=== PATIENT | male | born 1945 | race Caucasian/White ===

== ENCOUNTER 2016-10-31 08:08 | Emergency (ER) | payer MEDICARE, OTHER ==
[~2016-10-31] VITALS: Ht 175.2 cm; Wt 79.4 kg
[~2016-10-31 08:08] MED LIST: CEFADROXIL500 M1 PO; DICYCLOMINE HCL10 MG PO; DIOVAN HCT PO; HYDROCODONE BIT1 T11 PO; IMDUR SA60 M1 PO; LOTRIMIN AF1% TP; MIRALAX POWDER17 G1 PO; PLAVIX75 M1 PO; PREDNISONE50 MG PO; PRILOSEC20 M1 PO; VICODIN 5/500 505 MG PO
[2016-10-31 08:47] LABS: BASO # 0.1 10*3/uL (0.0-0.1); BASO % 0.9 % (0.0-1.0); EOS # 0.2 10*3/uL (0.0-0.4); EOS % 1.9 % (1.0-4.0); HEMATOCRIT 43.9 % (42.0-52.0); HEMOGLOBIN 15.2 g/dl (14.0-18.0); IG # 0.1 10*3/uL (0.0-0.1); LYMPH # 1.3 10*3/uL (1.3-4.4); LYMPH % 11.1 % (27.0-41.0); MEAN CELL VOLUME 88.3 fl (80.0-94.0); MEAN CORPUSCULAR HGB 30.6 pg (27.0-31.0); MEAN CORPUSCULAR HGB CONC 34.6 g/dl (33.0-37.0); MEAN PLATELET VOLUME 10.2 fl (9.6-12.3); MONO # 0.9 10*3/uL (0.1-1.0); MONO % 7.6 % (3.0-9.0); NEUT % 77.8 % (47.0-73.0); PLATELET COUNT AUTOMATED 168 10*3/uL (130-400); RED BLOOD COUNT 4.97 10*6/uL (4.50-5.90); RED CELL DISTRI WIDTH 14.2 % (0-14.5); WHITE BLOOD COUNT 11.6 10*3/uL (4.8-10.8)
[2016-10-31 08:58] LABS: BUN 15 mg/dl (7-24); CARBON DIOXIDE 30 mmol/L (21-32); CHLORIDE 106 mmol/L (98-107); EST GLOM FILT AFRICAN AMERICAN > 60 ml/min; GLUCOSE 121 mg/dL (65-99); POTASSIUM 3.4 mmol/L (3.5-5.1); SODIUM 145 mmol/L (136-145)
[2016-10-31 10:11] VITALS: BP 130/79
[2016-10-31] MEDS ORDERED: ROBAXIN500 M1 PO (10:39)
[2016-10-31] MEDS ORDERED: PERCOCET 325 MG1 TA2 PO (10:39)
== END 2016-10-31 11:28 | disposition home or self-care (01) ==
LOC: ED 08:08
PROVIDERS: Emergency Medicine
DX: M54.2 Cervicalgia (principal); E87.6 Hypokalemia; E83.42 Hypomagnesemia; I25.10 Atherosclerotic heart disease of native coronary artery without angina pectoris; K21.9 Gastro-esophageal reflux disease without esophagitis; E78.5 Hyperlipidemia, unspecified; I12.9 Hypertensive chronic kidney disease with stage 1 through stage 4 chronic kidney disease, or unspecified chronic kidney disease; N18.9 Chronic kidney disease, unspecified; Z88.2 Allergy status to sulfonamides; Z88.8 Allergy status to other drugs, medicaments and biological substances; Z79.899 Other long term (current) drug therapy

== ENCOUNTER 2016-11-02 08:54 | Emergency (ER) | payer MEDICARE, OTHER ==
[~2016-11-02] VITALS: Ht 175.2 cm; Wt 79.4 kg
[~2016-11-02 08:54] MED LIST changes: +PERCOCET 325 MG1 TA2 PO; +ROBAXIN500 M1 PO
[2016-11-02] MEDS ORDERED: ACETAMINOPHEN-O1 TAB JT (09:00)
[2016-11-02 09:01] VITALS: BP 135/96
[2016-11-02] MEDS ORDERED: MEDROL DOSEPAK4 MG PO (09:29)
== END 2016-11-02 11:25 | disposition home or self-care (01) ==
LOC: ED 08:54
DX: M54.2 Cervicalgia (principal); M43.6 Torticollis; I25.10 Atherosclerotic heart disease of native coronary artery without angina pectoris; K21.9 Gastro-esophageal reflux disease without esophagitis; E78.5 Hyperlipidemia, unspecified; I12.9 Hypertensive chronic kidney disease with stage 1 through stage 4 chronic kidney disease, or unspecified chronic kidney disease; N18.9 Chronic kidney disease, unspecified; Z88.2 Allergy status to sulfonamides; Z88.8 Allergy status to other drugs, medicaments and biological substances; Z79.899 Other long term (current) drug therapy

== ENCOUNTER 2016-12-15 09:03 | Inpatient (IN) | payer MEDICARE, OTHER ==
[~2016-12-15] VITALS: Ht 175.2 cm; Wt 83.0 kg
[2016-12-15] VITALS (8 sets, daily range): BP systolic 115–164; BP diastolic 59–138
--- NOTE | ~2016-12-15 | CON ---
[place], [place] REPORT OF CONSULTATION NAME: SANJAY JEWELL JR [facility] #: [id number] UNIT #: [id number] ROOM: 411 DOCTOR: REBEKAH MENDOZAKAMAR BIRTHDATE: [birth year] DOS: REQUESTING PHYSICIAN: Dr. Marbin Mitchell. REASON FOR CONSULTATION: Chest pain. ASSESSMENT: 1. Current presentation with dizziness, lightheadedness after being in a hot bath tub. 2. Slight chest pain, heaviness, tightness. 3. Coronary artery disease with previous history of bypass surgery x 6 in 1996. 4. The patient had subsequent reported 4 stents, last one was done in July 2016. 5. Peripheral vascular disease with documented AAA stent. 6. Hypertension. 7. Hyperlipidemia. 8. Long history of tobacco abuse. 9. Early family history of heart disease. PLAN: 1. Cycle cardiac enzymes. 2. The patient requesting any further workup to be done with Dr. Anderson in [place]. 3. Okay to discharge home if 2 separate cardiac enzymes are negative within 6 hours. 4. Call for any change in symptoms. 5. 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 HISTORY AND PHYSICAL: The patient is a pleasant 71-year-old gentleman unknown to our practice, was referred by Dr. Mitchell for further evaluation of an episode of dizziness, lightheadedness that occurred after the patient being in the hot bath tub. The patient attempted to get up, got slightly dizzy, sat down and waited a while and then he got up and subsequently after that have some chest pain, heaviness, tightness, nonradiating and 3/10 with no associated nausea, vomiting or diaphoresis. This lasted for 10-15 minutes. The patient subsequently presented to the Emergency Room. Prior to this presentation, the patient had been doing relatively well since his last stent, which was in July of this year. Apparently, the patient received 2 stents. He is active, does not follow regular exercise program. The patient does have history of symptomatic palpitation, but none recently. No dizziness, lightheadedness, no syncope. He sleeps on one pillow with no reported PND, orthopnea, or pedal edema. 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 No fever, no chills, no night sweats, maintained good appetite, no weight loss. PAST MEDICAL HISTORY: As detailed in my assessment. SOCIAL HISTORY: The patient quit smoking about 25 years ago. No current alcohol or illicit drug abuse. [place], [place] REPORT OF CONSULTATION [id number] UN[facility] #: [id number] ROOM: 411 DOCTOR: KAMAR WELCH MD BIRTHDATE: [birth year] FAMILY HISTORY: The patient's mother had myocardial infarction, of possibly massive heart attack at age 58. His brother also had mild congestive heart failure in his 50s. CURRENT MEDICATIONS: He is on Lovenox, Protonix, Restoril, Zofran, morphine, Dulcolax, Tylenol. ALLERGIES: The patient is allergic to SULFA and STATIN. REVIEW OF SYSTEMS: Currently, the patient denies any headache, diplopia or blurry vision. No fever, no chills, no night sweats. No abdominal pain, no bright blood per rectum, no tarry stools. The patient admits to joint pain, no muscular pain. No anxiety, no depression. No polyuria, no polydipsia, no skin rash. Review of all other systems has been negative. PHYSICAL EXAMINATION: GENERAL: The patient is alert, oriented x 3, quite pleasant. VITAL SIGNS: Blood pressure 141/84, heart rate 77, respiratory rate of 14, temperature 97.4. HEENT: Extraocular muscles intact. Pupils equal, round, reactive to light. Conjunctivae: No pallor. Throat: No petechiae. NECK: Good carotid upstroke. Faint bruit could be heard over the right carotid. No lymphadenopathy or thyromegaly. HEART: S1, S2 with faint holosystolic murmur at left sternal border. No rub, no sternal heave. CHEST AND BACK: No deformities. LUNGS: Decreased air movement, but no shaneka wheezing or rales. ABDOMEN: Soft, nontender. Present bowel sounds. Unable to appreciate any masses or bruits. LOWER EXTREMITIES: There is no edema with faint distal pulses. NEUROLOGIC: Grossly nonfocal. SKIN: No significant rashes. Electrocardiogram showed normal sinus rhythm with mild nonspecific ST changes. LABORATORY DATA: White count 8.7, hemoglobin 16.8, potassium 3.6 and GFR over 60%. Normal liver function tests. CK-MB 2.8, CK is 151, troponin less than 0.015. [place], [place] REPORT OF CONSULTATION NAME: SANJAY JEWELL JR [facility]: [id number] UNIT #: [id number] ROOM: 411 DOCTOR: KAMAR WELCH MD BIRTHDATE: [birth year] KAMAR WELCH MD CM:CONSTR:REPORT OF CONSULTATION 1413 12/15/16 1933 interface
[~2016-12-15 09:03] MED LIST changes: +ACETAMINOPHEN-O1 TAB JT; +MEDROL DOSEPAK4 MG PO
[2016-12-15 09:27] LABS: BASO # 0.1 10*3/uL (0.0-0.1); BASO % 1.1 % (0.0-1.0); EOS # 0.2 10*3/uL (0.0-0.4); EOS % 2.4 % (1.0-4.0); HEMATOCRIT 48.9 % (42.0-52.0); HEMOGLOBIN 16.8 g/dl (14.0-18.0); LYMPH # 1.8 10*3/uL (1.3-4.4); LYMPH % 20.7 % (27.0-41.0); MEAN CELL VOLUME 89.4 fl (80.0-94.0); MEAN CORPUSCULAR HGB 30.7 pg (27.0-31.0); MEAN CORPUSCULAR HGB CONC 34.4 g/dl (33.0-37.0); MEAN PLATELET VOLUME 10.1 fl (9.6-12.3); MONO # 0.7 10*3/uL (0.1-1.0); MONO % 7.9 % (3.0-9.0); NEUT # 5.9 10*3/uL (2.3-7.9); NEUT % 67.4 % (47.0-73.0); PLATELET COUNT AUTOMATED 203 10*3/uL (130-400); RED BLOOD COUNT 5.47 10*6/uL (4.50-5.90); RED CELL DISTRI WIDTH 13.8 % (0-14.5); WHITE BLOOD COUNT 8.7 10*3/uL (4.8-10.8)
[2016-12-15 09:35] LABS: PROTHROMBIN TIME 10.8 SECONDS (9.0-12.4)
[2016-12-15 09:42] LABS: ALBUMIN 3.8 gm/dl (3.1-4.5); BILIRUBIN, TOTAL 0.5 mg/dl (0.2-1.0); BUN 20 mg/dl (7-24); CARBON DIOXIDE 26 mmol/L (21-32); CHLORIDE 106 mmol/L (98-107); EST GLOM FILT AFRICAN AMERICAN > 60 ml/min; GLUCOSE 109 mg/dL (65-99); MAGNESIUM 1.6 mg/dL (1.5-2.1); POTASSIUM 3.6 mmol/L (3.5-5.1); SGOT/AST 22 IU/L (3-35); SGPT/ALT 20 U/L (12-78); SODIUM 140 mmol/L (136-145); TOTAL PROTEIN 7.9 gm/dL (6.4-8.2)
[2016-12-15 09:43] LABS: ALKALINE PHOSPHATASE 83 U/L (45-117); CKMB 2.8 ng/ml (0.5-3.6); CPK 151 U/L (39-308)
[2016-12-15 09:54] LABS: C-REACTIVE PROTEIN < 0.29 MG/DL (0-0.3); TROPONIN I < 0.015 ng/ml (<0.045)
[2016-12-16] VITALS: BP 134/73
[2016-12-16 04:47] LABS: BASO # 0.1 10*3/uL (0.0-0.1); BASO % 0.9 % (0.0-1.0); EOS # 0.2 10*3/uL (0.0-0.4); EOS % 2.8 % (1.0-4.0); HEMATOCRIT 43.5 % (42.0-52.0); LYMPH # 1.7 10*3/uL (1.3-4.4); LYMPH % 20.1 % (27.0-41.0); MEAN CELL VOLUME 89.9 fl (80.0-94.0); MEAN CORPUSCULAR HGB CONC 34.5 g/dl (33.0-37.0); MEAN PLATELET VOLUME 10.5 fl (9.6-12.3); MONO # 0.7 10*3/uL (0.1-1.0); MONO % 7.7 % (3.0-9.0); NEUT # 5.8 10*3/uL (2.3-7.9); PLATELET COUNT AUTOMATED 181 10*3/uL (130-400); RED BLOOD COUNT 4.84 10*6/uL (4.50-5.90); RED CELL DISTRI WIDTH 13.9 % (0-14.5); WHITE BLOOD COUNT 8.6 10*3/uL (4.8-10.8)
[2016-12-16 05:15] LABS: ALBUMIN 3.1 gm/dl (3.1-4.5); BUN 19 mg/dl (7-24); CARBON DIOXIDE 27 mmol/L (21-32); CHLORIDE 106 mmol/L (98-107); GLUCOSE 98 mg/dL (65-99); MAGNESIUM 1.7 mg/dL (1.5-2.1); POTASSIUM 3.7 mmol/L (3.5-5.1); SODIUM 141 mmol/L (136-145)
[2016-12-16 05:26] LABS: ALKALINE PHOSPHATASE 69 U/L (45-117); BILIRUBIN, TOTAL 0.4 mg/dl (0.2-1.0); CHOLESTEROL 180 mg/dL (<200); EST GLOM FILT AFRICAN AMERICAN > 60 ml/min; FREE T4 1.14 ng/dl (0.76-1.46); HDL CHOLESTEROL 30 mg/dl (40-60); LDL CHOLESTEROL 95 mg/dL (9-159); PHOSPHOROUS 2.4 mg/dL (2.5-4.9); SGOT/AST 14 IU/L (3-35); SGPT/ALT 17 U/L (12-78); TOTAL PROTEIN 6.8 gm/dL (6.4-8.2); TRIGLYCERIDES 275 mg/dl (<150); VLDL CHOLESTEROL 55 mg/dL (6-40)
[2016-12-16 07:54] LABS: VITAMIN D, 25-HYDROXY 24.8 ng/mL (30-100)
[2016-12-16 07:55] LABS: FOLIC ACID 8.76 ng/mL (>5.38)
[2016-12-16 08:00] VITALS: BP 134/84
[2016-12-16] MEDS ORDERED: D-1000 185 MG-11 TAB PO (09:29)
== END 2016-12-16 09:48 | disposition home or self-care (01) | DRG 206 ==
LOC: ED 09:03 → 4E 10:36 → EDHOLD 10:36 → 4E 10:48
PROVIDERS: Emergency Medicine; Registered Nurse
DX: M94.0 Chondrocostal junction syndrome [Tietze] (principal); J44.9 Chronic obstructive pulmonary disease, unspecified; K21.9 Gastro-esophageal reflux disease without esophagitis; R55 Syncope and collapse; I73.9 Peripheral vascular disease, unspecified; I25.10 Atherosclerotic heart disease of native coronary artery without angina pectoris; E78.5 Hyperlipidemia, unspecified; N18.9 Chronic kidney disease, unspecified; Z96.653 Presence of artificial knee joint, bilateral; I12.9 Hypertensive chronic kidney disease with stage 1 through stage 4 chronic kidney disease, or unspecified chronic kidney disease; Z95.1 Presence of aortocoronary bypass graft; Z90.49 Acquired absence of other specified parts of digestive tract; I25.2 Old myocardial infarction; Z83.3 Family history of diabetes mellitus; Z82.49 Family history of ischemic heart disease and other diseases of the circulatory system; Z88.2 Allergy status to sulfonamides; Z95.5 Presence of coronary angioplasty implant and graft; Z95.828 Presence of other vascular implants and grafts; Z88.8 Allergy status to other drugs, medicaments and biological substances; Z79.84 Long term (current) use of oral hypoglycemic drugs; Z79.1 Long term (current) use of non-steroidal anti-inflammatories (NSAID); Z79.899 Other long term (current) drug therapy; Z87.891 Personal history of nicotine dependence

== ENCOUNTER 2017-03-26 07:11 | Inpatient (IN) | payer MEDICARE, OTHER ==
[~2017-03-26] VITALS: Ht 180 cm; Wt 73.0 kg
[2017-03-26 07:11] VITALS: BP 149/82
[~2017-03-26 07:11] MED LIST changes: +D-1000 185 MG-11 TAB PO
[2017-03-26 07:29] LABS: BASO # 0.1 10*3/uL (0.0-0.1); BASO % 0.9 % (0.0-1.0); EOS # 0.2 10*3/uL (0.0-0.4); EOS % 2.4 % (1.0-4.0); HEMOGLOBIN 17.1 g/dl (14.0-18.0); LYMPH # 1.8 10*3/uL (1.3-4.4); LYMPH % 18.6 % (27.0-41.0); MEAN CELL VOLUME 88.2 fl (80.0-94.0); MEAN CORPUSCULAR HGB 30.2 pg (27.0-31.0); MEAN CORPUSCULAR HGB CONC 34.2 g/dl (33.0-37.0); MONO # 0.7 10*3/uL (0.1-1.0); MONO % 7.3 % (3.0-9.0); NEUT # 6.7 10*3/uL (2.3-7.9); NEUT % 70.2 % (47.0-73.0); PLATELET COUNT AUTOMATED 219 10*3/uL (130-400); RED BLOOD COUNT 5.67 10*6/uL (4.50-5.90); RED CELL DISTRI WIDTH 13.3 % (0-14.5); WHITE BLOOD COUNT 9.5 10*3/uL (4.8-10.8)
[2017-03-26 07:38] LABS: ACT PARTIAL THROMBO TIME 26.4 SECONDS (20.8-31.5); INTERNATIONAL NORM RATIO 1.1 (2.0-3.5)
[2017-03-26 07:46] LABS: ALBUMIN 3.8 gm/dl (3.1-4.5); ALKALINE PHOSPHATASE 86 U/L (45-117); BUN 18 mg/dl (7-24); CHLORIDE 104 mmol/L (98-107); CREATININE 1.32 mg/dL (0.70-1.30); POTASSIUM 3.8 mmol/L (3.5-5.1); SGOT/AST 18 IU/L (3-35); SGPT/ALT 23 U/L (12-78); SODIUM 139 mmol/L (136-145)
[2017-03-26 07:55] LABS: TROPONIN I < 0.015 ng/ml (<0.045)
[2017-03-26 08:07] VITALS: BP 123/74
[2017-03-26 08:25] VITALS: BP 108/65
[2017-03-26] MEDS ORDERED: OMEPRAZOLE D/R20 MG PO (09:52)
[2017-03-26 12:00] VITALS: BP 139/71
--- NOTE | 2017-03-26 14:03 | NUR ---
PT IS ON ROOM AIR. BP OF 155/90 SAO2-96 HR PT WAS WALKED FOR 7 MINUTES. WALKED 2 LAPS PT DID NOT DROP BELOW 95%
[2017-03-26 16:00] VITALS: BP 153/83
[2017-03-26 20:00] VITALS: BP 150/80
--- NOTE | 2017-03-26 21:30 | NUR ---
PATIENT RESTING QUIETLY IN BED. HE IS PLEASANT AND COOPERATIVE WITH CARE. DENIES ANY CP AT THIS TIME AND STATES HE IS ALWAYS A LITTLE SOB BUT THAT IS NORMAL FOR HIM. RESPIRATIONS EASY/REG ON RA. NO SXS OF DISTRESS. WILL MONITOR. SEE ASSESSMENT.
[2017-03-27] VITALS: BP 155/88
[2017-03-27 07:14] LABS: HEMATOCRIT 48.9 % (42.0-52.0); MEAN CELL VOLUME 88.9 fl (80.0-94.0); MEAN CORPUSCULAR HGB 30.9 pg (27.0-31.0); MEAN CORPUSCULAR HGB CONC 34.8 g/dl (33.0-37.0); MEAN PLATELET VOLUME 10.4 fl (9.6-12.3); PLATELET COUNT AUTOMATED 241 10*3/uL (130-400); RED CELL DISTRI WIDTH 13.5 % (0-14.5); WHITE BLOOD COUNT 25.3 10*3/uL (4.8-10.8)
[2017-03-27 07:46] LABS: ALBUMIN 3.5 gm/dl (3.1-4.5); BUN 27 mg/dl (7-24); CHLORIDE 107 mmol/L (98-107); PLATELET SUFFICIENCY NORMAL (NORMAL); POTASSIUM 3.4 mmol/L (3.5-5.1); SGOT/AST 13 IU/L (3-35); SGPT/ALT 21 U/L (12-78); SODIUM 141 mmol/L (136-145); TOTAL CELLS COUNTED 100 #CELLS
[2017-03-27 07:51] LABS: ALKALINE PHOSPHATASE 83 U/L (45-117); CHOLESTEROL 214 mg/dL (<200); CREATININE 1.23 mg/dL (0.70-1.30); HDL CHOLESTEROL 44 mg/dl (40-60); LDL CHOLESTEROL 134 mg/dL (9-159); PHOSPHOROUS 2.8 mg/dL (2.5-4.9); TOTAL PROTEIN 7.5 gm/dL (6.4-8.2); TRIGLYCERIDES 182 mg/dl (<150); VLDL CHOLESTEROL 36 mg/dL (6-40)
[2017-03-27 08:00] VITALS: BP 154/83
[2017-03-27] MEDS ORDERED: MUCINEX1200 M1 PO (09:56)
--- NOTE | 2017-03-27 11:03 | NUR ---
DISCHARGE INSTRUCTIONS REVIEWED. 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 PT PICKED UP BY HIS AND AMBULATED OFF THE FLOOR.
== END 2017-03-27 11:03 | disposition home or self-care (01) | DRG 206 ==
LOC: ED 07:11 → EDHOLD 08:06 → 4E 08:23 → ICCU 08:30 → 4E 08:33
PROVIDERS: Emergency Medicine; Registered Nurse; ADMIT Internal Medicine
DX: M94.0 Chondrocostal junction syndrome [Tietze] (principal); J44.1 Chronic obstructive pulmonary disease with (acute) exacerbation; K21.9 Gastro-esophageal reflux disease without esophagitis; E78.5 Hyperlipidemia, unspecified; I25.10 Atherosclerotic heart disease of native coronary artery without angina pectoris; N18.9 Chronic kidney disease, unspecified; I12.9 Hypertensive chronic kidney disease with stage 1 through stage 4 chronic kidney disease, or unspecified chronic kidney disease; Z96.652 Presence of left artificial knee joint; K58.9 Irritable bowel syndrome, unspecified; K57.90 Diverticulosis of intestine, part unspecified, without perforation or abscess without bleeding; Z95.1 Presence of aortocoronary bypass graft; Z95.5 Presence of coronary angioplasty implant and graft; I25.2 Old myocardial infarction; Z90.49 Acquired absence of other specified parts of digestive tract; Z88.2 Allergy status to sulfonamides; Z82.49 Family history of ischemic heart disease and other diseases of the circulatory system; Z88.8 Allergy status to other drugs, medicaments and biological substances; Z98.49 Cataract extraction status, unspecified eye

== ENCOUNTER 2017-07-04 09:29 | Emergency (ER) | payer MEDICARE, OTHER ==
[~2017-07-04] VITALS: Ht 175.2 cm; Wt 83.0 kg
[~2017-07-04 09:29] MED LIST changes: +MUCINEX1200 M1 PO; +OMEPRAZOLE D/R20 MG PO
[2017-07-04] MEDS ORDERED: SYMB160 INH (09:35)
[2017-07-04] MEDS ORDERED: ALBUTEROL2.5 MG/0.5 INH (09:35)
[2017-07-04 09:36] VITALS: BP 123/73
[2017-07-04 09:54] LABS: BASO # 0.1 10*3/uL (0.0-0.1); EOS # 0.2 10*3/uL (0.0-0.4); EOS % 1.8 % (1.0-4.0); HEMOGLOBIN 16.1 g/dl (14.0-18.0); LYMPH # 1.4 10*3/uL (1.3-4.4); LYMPH % 14.9 % (27.0-41.0); MEAN CELL VOLUME 90.6 fl (80.0-94.0); MEAN CORPUSCULAR HGB 30.4 pg (27.0-31.0); MEAN CORPUSCULAR HGB CONC 33.5 g/dl (33.0-37.0); MEAN PLATELET VOLUME 10.2 fl (9.6-12.3); MONO # 0.7 10*3/uL (0.1-1.0); MONO % 7.8 % (3.0-9.0); NEUT # 6.7 10*3/uL (2.3-7.9); NEUT % 73.8 % (47.0-73.0); PLATELET COUNT AUTOMATED 187 10*3/uL (130-400); RED CELL DISTRI WIDTH 14.3 % (0-14.5); WHITE BLOOD COUNT 9.1 10*3/uL (4.8-10.8)
[2017-07-04 10:03] LABS: ACT PARTIAL THROMBO TIME 24.9 SECONDS (20.8-31.5)
[2017-07-04 10:11] LABS: ALBUMIN 3.8 gm/dl (3.1-4.5); ALKALINE PHOSPHATASE 73 U/L (45-117); BUN 20 mg/dl (7-24); CHLORIDE 105 mmol/L (98-107); CREATININE 1.27 mg/dL (0.70-1.30); POTASSIUM 3.7 mmol/L (3.5-5.1); SGOT/AST 15 IU/L (3-35); SGPT/ALT 24 U/L (12-78); SODIUM 140 mmol/L (136-145); TOTAL PROTEIN 7.4 gm/dL (6.4-8.2)
[2017-07-04 10:14] LABS: TROPONIN I < 0.015 ng/ml (<0.045)
[2017-07-04] MEDS ORDERED: PREDNISONE10 MG PO (10:50)
[2017-07-04] MEDS ORDERED: DUONEB 3 MG/3 ML3 M1 INH (10:50)
== END 2017-07-04 11:04 | disposition home or self-care (01) ==
LOC: ED 09:29
PROVIDERS: Registered Nurse
DX: J44.9 Chronic obstructive pulmonary disease, unspecified (principal); I25.10 Atherosclerotic heart disease of native coronary artery without angina pectoris; G47.30 Sleep apnea, unspecified; I25.2 Old myocardial infarction; Z95.1 Presence of aortocoronary bypass graft; Z90.49 Acquired absence of other specified parts of digestive tract; Z90.89 Acquired absence of other organs; Z79.899 Other long term (current) drug therapy; Z88.2 Allergy status to sulfonamides; Z88.8 Allergy status to other drugs, medicaments and biological substances

== ENCOUNTER 2017-08-11 10:28 | Emergency (ER) | payer MEDICARE, OTHER ==
[~2017-08-11] VITALS: Ht 175.2 cm; Wt 81.6 kg
[~2017-08-11 10:28] MED LIST changes: +ALBUTEROL2.5 MG/0.5 INH; +DUONEB 3 MG/3 ML3 M1 INH; +PREDNISONE10 MG PO; +SYMB160 INH
[2017-08-11 10:50] LABS: BASO # 0.1 10*3/uL (0.0-0.1); BASO % 0.6 % (0.0-1.0); EOS % 0.2 % (1.0-4.0); HEMATOCRIT 47.1 % (42.0-52.0); HEMOGLOBIN 16.4 g/dl (14.0-18.0); LYMPH # 0.8 10*3/uL (1.3-4.4); LYMPH % 8.9 % (27.0-41.0); MEAN CORPUSCULAR HGB CONC 34.8 g/dl (33.0-37.0); MEAN PLATELET VOLUME 9.6 fl (9.6-12.3); MONO # 0.4 10*3/uL (0.1-1.0); MONO % 4.3 % (3.0-9.0); NEUT # 7.8 10*3/uL (2.3-7.9); NEUT % 84.9 % (47.0-73.0); PLATELET COUNT AUTOMATED 221 10*3/uL (130-400); RED BLOOD COUNT 5.29 10*6/uL (4.50-5.90); RED CELL DISTRI WIDTH 14.1 % (0-14.5); WHITE BLOOD COUNT 9.2 10*3/uL (4.8-10.8)
[2017-08-11 10:59] LABS: ACT PARTIAL THROMBO TIME 25.1 SECONDS (20.8-31.5)
[2017-08-11 11:06] LABS: ALBUMIN 3.9 gm/dl (3.1-4.5); ALKALINE PHOSPHATASE 78 U/L (45-117); BUN 18 mg/dl (7-24); CHLORIDE 106 mmol/L (98-107); CREATININE 1.35 mg/dL (0.70-1.30); POTASSIUM 3.3 mmol/L (3.5-5.1); SGOT/AST 16 IU/L (3-35); SGPT/ALT 22 U/L (12-78); SODIUM 140 mmol/L (136-145); TOTAL PROTEIN 7.8 gm/dL (6.4-8.2)
[2017-08-11 11:07] LABS: TROPONIN I < 0.015 ng/ml (<0.045)
[2017-08-11 13:17] VITALS: BP 116/70
== END 2017-08-11 13:19 | disposition home or self-care (01) ==
LOC: ED 10:28
PROVIDERS: Emergency Medicine
DX: R42 Dizziness and giddiness (principal); I10 Essential (primary) hypertension; I25.10 Atherosclerotic heart disease of native coronary artery without angina pectoris; J44.9 Chronic obstructive pulmonary disease, unspecified; Z98.890 Other specified postprocedural states; Z90.49 Acquired absence of other specified parts of digestive tract; Z96.653 Presence of artificial knee joint, bilateral; Z95.1 Presence of aortocoronary bypass graft; Z88.2 Allergy status to sulfonamides; Z88.3 Allergy status to other anti-infective agents; Z79.899 Other long term (current) drug therapy

== ENCOUNTER 2017-08-24 07:12 | Emergency (ER) | payer MEDICARE, OTHER ==
[~2017-08-24] VITALS: Ht 175.2 cm; Wt 83.9 kg
[2017-08-24 07:58] LABS: BASO # 0.1 10*3/uL (0.0-0.1); BASO % 0.9 % (0.0-1.0); EOS # 0.2 10*3/uL (0.0-0.4); EOS % 1.3 % (1.0-4.0); HEMATOCRIT 45.6 % (42.0-52.0); LYMPH # 1.4 10*3/uL (1.3-4.4); LYMPH % 10.3 % (27.0-41.0); MEAN CELL VOLUME 87.9 fl (80.0-94.0); MEAN CORPUSCULAR HGB 30.8 pg (27.0-31.0); MEAN CORPUSCULAR HGB CONC 35.1 g/dl (33.0-37.0); MEAN PLATELET VOLUME 10.2 fl (9.6-12.3); MONO # 1.1 10*3/uL (0.1-1.0); MONO % 8.6 % (3.0-9.0); NEUT # 10.4 10*3/uL (2.3-7.9); NEUT % 78.1 % (47.0-73.0); PLATELET COUNT AUTOMATED 184 10*3/uL (130-400); RED BLOOD COUNT 5.19 10*6/uL (4.50-5.90); RED CELL DISTRI WIDTH 14.1 % (0-14.5); WHITE BLOOD COUNT 13.3 10*3/uL (4.8-10.8)
[2017-08-24 08:24] LABS: ALBUMIN 3.5 gm/dl (3.1-4.5); ALKALINE PHOSPHATASE 68 U/L (45-117); BUN 17 mg/dl (7-24); CHLORIDE 105 mmol/L (98-107); CREATININE 1.19 mg/dL (0.70-1.30); POTASSIUM 3.2 mmol/L (3.5-5.1); SGOT/AST 12 IU/L (3-35); SGPT/ALT 19 U/L (12-78); SODIUM 141 mmol/L (136-145)
[2017-08-24 08:29] LABS: TROPONIN I < 0.015 ng/ml (<0.045)
[2017-08-24 12:00] VITALS: BP 130/80
== END 2017-08-24 12:18 | disposition short-term general hospital (02) ==
LOC: ED 07:12
PROVIDERS: Family Medicine
DX: I13.0 Hypertensive heart and chronic kidney disease with heart failure and stage 1 through stage 4 chronic kidney disease, or unspecified chronic kidney disease (principal); N18.9 Chronic kidney disease, unspecified; I50.9 Heart failure, unspecified; I25.10 Atherosclerotic heart disease of native coronary artery without angina pectoris; J44.9 Chronic obstructive pulmonary disease, unspecified; K21.9 Gastro-esophageal reflux disease without esophagitis; E78.5 Hyperlipidemia, unspecified; K58.9 Irritable bowel syndrome, unspecified; Z95.1 Presence of aortocoronary bypass graft; Z90.49 Acquired absence of other specified parts of digestive tract; Z98.890 Other specified postprocedural states; Z96.653 Presence of artificial knee joint, bilateral; Z88.2 Allergy status to sulfonamides; Z88.3 Allergy status to other anti-infective agents; Z79.899 Other long term (current) drug therapy; Z95.5 Presence of coronary angioplasty implant and graft

== ENCOUNTER 2018-04-16 09:09 | Inpatient (IN) | payer MEDICARE, OTHER ==
[2018-04-16] VITALS (12 sets, daily range): BP systolic 113–157; BP diastolic 74–94
[~2018-04-16] VITALS: Ht 175.3 cm; Wt 88.1 kg
--- NOTE | ~2018-04-16 | PR ---
[place], [place] PROGRESS NOTE NAME: SANJAY JEWELL JR [facility] #: [id number] UNIT #: [id number] ROOM: [facility] DOCTOR: DONAVAN CORDON MD,NANCY BIRTHDATE: [birth year] DOS: 04/18/2018 PULMONARY PROGRESS NOTE SUBJECTIVE: Chest tube remains clamped on the left side. He has not reported any symptoms of shortness of breath, coughing, or sputum expectoration. He denies symptoms of nausea or vomiting. Chest pain which has been noted at the site of the chest tube remains unchanged, but controlled with pain medication. REVIEW OF SYSTEMS: There were no symptoms of nausea, vomiting, diarrhea, abdominal pain, hematemesis, melena or hematochezia headache or diplopia. Remaining review of systems of the patient was completed, that was noted all negative. Family, social, and past surgical history remains all unchanged for this patient since my consultation of yesterday. OBJECTIVE: VITAL SIGNS: For the patient, which have been recorded shows a normal temperature, respiratory rate 22, heart rate of 100-97, blood pressure 134/84-141/90. The pulse oxygen saturation on 2 liters nasal cannula 98% saturation this morning at rest. HEENT: Examination shows head was atraumatic. Eyes nonicterus. NECK: Supple. CARDIOVASCULAR: S1, S2 is audible. LUNGS: The patient was noted without any wheezing or crackles at the present time. Subcutaneous emphysema was noted palpable mild in the left anterior lateral chest wall. There were no subcutaneous emphysema palpable in the neck. CARDIOVASCULAR: S1, S2 audible. ABDOMEN: Noted flat, soft, nontender. Bowel sounds present. EXTREMITIES: Without acute edema. MUSCULOSKELETAL: Without any acute deformities. SKIN: Visible skin no lesions or rashes. CENTRAL NERVOUS SYSTEM: Cranial nerves 2-12 intact. LABORATORY DATA: BMP that was done this morning, BUN 24, creatinine was normal, glucose 110. Remaining electrolytes normal. CBC this morning remains normal. IMAGING STUDIES: CT scan of the chest that was completed this morning was reviewed personally shows a 5.5 x 4 cm polyp in the anterior aspect of the left upper lobe was noted. Chest tube was noted in place with the clip in the close proximity of the left subclavian artery. Emphysema changes noted as panlobular emphysema in the upper lung consistent with past diagnosis of chronic obstructive pulmonary disease of tobacco use. There was no visible pneumothorax. Subcutaneous emphysema noted in the left chest wall and in the area of the skin under the left shoulder. IMPRESSION: 1. The patient who has been currently noted with air leak resulting from acute bolus ruptured in the left upper lung. [place], [place] PROGRESS NOTE NAME: SANJAY JEWELL JR UNIT #: [id number] ROOM: [facility] DOCTOR: DONAVAN CORDON MD,NANCY BIRTHDATE: [birth year] 2. Panlobular emphysema. 3. Subcutaneous emphysema which resulted from the pneumothorax. There was no pneumothorax noted. The chest tube remains clamped for the last 24 hours. 4. The patient with a history of coronary artery disease and other medical illnesses. PLAN OF THERAPY: The chest tube of the patient was removed because of the tip was noted close in proximity of the left subclavian artery for this patient to prevent any trauma with the cough or other etiology and movement. The dressing was applied at the bedside. The patient needs to be transferred to another facility to have the surgical resection of the ____ to prevent the pneumothorax, which was very likely for the patient in the near future if it is not managed. Subcutaneous emphysema to be managed. Assessment and management were discussed with the patient and recommendation for the patient and his spouse in detail at the bedside. 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 Arrangements will be made by the primary care team for this patient to be transferred with assistance. In the meantime, all other plan of therapy for the patient to be continued without changes. Usual care, other supportive plan of treatment care. NANCY GO MD CM:PNTRANS [id number] NANCY CORDON MD 04/18/18 1257 interface
--- NOTE | ~2018-04-16 | EKG ---
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
--- NOTE | ~2018-04-16 | EKG ---
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
--- NOTE | ~2018-04-16 | CON ---
[place], [place] REPORT OF CONSULTATION NAME: SANJAY JEWELL JR [facility] #: [id number] UNIT #: [id number] ROOM: [facility] DOCTOR: NANCY LEGGETT MD BIRTHDATE: [birth year] DOS: 04/17/2018 PULMONARY CONSULTATION, EVALUATION AND MANAGEMENT CONSULTATION REQUESTED BY: Hospitalist service. REASON FOR CONSULTATION: For assessment of current spontaneous pneumothorax. HISTORY OF PRESENT ILLNESS: This is a patient who does not have any known medical condition for the patient. A 72-year-old patient, presented to the Emergency Room on 04/16/2018. The patient reported symptoms of having left-sided chest pressure with the bloating in the abdomen. The patient felt like air trapped as a bubble in the abdomen and unable to burb. The symptom was noted increased requiring assessment in the Emergency Room. The patient has been assessed in the Emergency Room with the chest x-ray done as well, which shows a large pneumothorax in the left side with complete atelectasis of the right lung. The patient has pneumothorax, chest tube for the patient inserted by the ER physician. The insertion of the chest tube resulted in resolution of the pneumothorax completely. The patient was admitted to the Intensive Care Unit. The patient was in the Intensive Care Unit and chest tube accidentally pulled out and it was not known by the patient. The patient has a chest tube reinserted later and the repeat chest x-ray does show recurrence of the pneumothorax. The patient had similar tube inserted as well. The patient denies any symptoms of fever or chills. Denies any symptoms of coughing, sputum expectoration or hemoptysis. The patient is currently resting comfortable at this time. The chest tube remains in place which has been planned for the patient about 90 minutes or greater. REVIEW OF SYSTEMS: CONSTITUTIONAL: Fatigue and tiredness noted. There were no symptoms of fever or chills. EYES: Denies any burning, redness, or tenderness. EARS, NOSE, THROAT SYMPTOMS: Denies sore throat, hoarseness, otalgia, postnasal drainage or epistaxis. CARDIOVASCULAR: No anginal pain, edema, or pain of the lower extremities. The chest pain patient reported related to the current chest tube in place that is controlled with pain medications. GASTROINTESTINAL: Denies dysphagia, nausea, vomiting, diarrhea, abdominal pain, hematemesis, melena, or hematochezia. GENITOURINARY: No dysuria, suprapubic pain, or hematuria. MUSCULOSKELETAL: No acute joint pain, redness or tenderness or any deformities. GENITOURINARY: Denies dizziness, headache, diplopia, or syncopal episodes. SKIN: Denies lesions, rashes or any open areas. CENTRAL NERVOUS SYSTEM: Medications were reviewed. They were noted all negative. PAST MEDICAL HISTORY: 1. Coronary artery disease. 2. Chronic kidney disease. 3. General anxiety disorder. [place], [place] REPORT OF CONSULTATION NAME: SANJAY JEWELL JR UNIT #: [id number] ROOM: [facility] DOCTOR: DONAVAN CORDON MD,NANCY BIRTHDATE: [birth year] 4. Diverticulosis. 5. Gastroesophageal reflux. 6. History of chronic obstructive pulmonary disease. 7. Abdominal aortic aneurysm that was repaired. 8. Hyperlipidemia. 9. Essential hypertension. 10. Irritable bowel syndrome. PAST SURGICAL HISTORY: 1. Bilateral ____ implantation. 2. Hernia repair. 3. Cholecystectomy. 4. Coronary artery bypass grafting, 6-vessel bypass. 5. Cholecystectomy. SOCIAL HISTORY: The patient is and lives at home. Denies any history of alcohol use or illicit drug use. 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 Tobacco use for the patient noted as a pack of cigarettes a day for about 30-40 years. Tobacco cessation was done 30 years ago. FAMILY HISTORY: The patient's father patient at the age of 86 years with complications of coronary artery disease. The mother at the age of 50 with complication of abdominal aortic aneurysm and myocardial infarction. PAST SURGICAL HISTORY: History of mitral valve replacement. HOME MEDICATIONS: Listed as use of Symbicort HFA, aspirin, dicyclomine, lorazepam, omeprazole, and Diovan. ALLERGIES: 1. STATIN DRUGS. 2. SULFA DRUGS. 3. AMIODARONE. 4. ELIQUIS. 5. DOXYCYCLINE. PHYSICAL EXAMINATION: GENERAL: This is a 72-year-old male patient who has been currently resting comfortably, sitting on the bed without any acute distress this morning of assessment. Height of 5 feet 9 inches, weight of 104 pounds. BMI 20.7. VITAL SIGNS: The patient otherwise noted as normal temperature since admission, respiratory rate 17-22, and heart rate of 119, on admission noted at 88; blood pressure 134/94-144/90. Pulse oxygen saturation recorded on 2 liters nasal cannula 95% saturation. It was noted 87% on admission on room air. HEENT: Examination shows head was atraumatic. Eyes nonicterus. NECK: Supple. There were no subcutaneous emphysema. Trachea midline. CARDIOVASCULAR SYSTEM: S1, S2 audible. LUNGS: The patient has nlbl-nr-emawhert decreased breath sounds on the left chest. The right lung was noted clear. There was no wheezing heard. ABDOMEN: Soft and nontender. Bowel sounds present. [place], [place] REPORT OF CONSULTATION NAME: SANJAY JEWELL JR UNIT #: [id number] ROOM: [facility] DOCTOR: DONAVAN CORDON MD,NANCY BIRTHDATE: [birth year] EXTREMITIES: Without acute edema. MUSCULOSKELETAL: The patient noted without any acute deformities. CENTRAL NERVOUS SYSTEM: Cranial nerves 2-12 intact. MUSCULOSKELETAL: Noted without any deformities. LABORATORY DATA: CBC that was done on admission yesterday noted as normal CBC. Lactic acid 1.8 yesterday. PT/PTT noted normal yesterday. CMP of the patient that was done yesterday noted BUN 24, creatinine 1.54, and glucose 128. The CMP remaining was normal. The troponin noted normal yesterday. CBC of the patient that was done on 04/17/2018, WBC count 11.2; normal CBC. BMP that was done on 04/17/2018, BUN 24, creatinine 1.35. Glucose 138. Remaining electrolytes grossly normal. RADIOLOGIC DATA: Review of the radiology data, chest x-ray on admission complete pneumothorax on the left side, coronary bypass grafting changes, reexpansion of the lung with insertion of small chest tube remains in place in the left upper hemithorax. Chest x-ray of the patient as the chest tube was accidentally pulled out resulting in pneumothorax, reexpansion of the lung was noted. The followup chest x-ray of patient shows the lung reexpanded again. Chest x-ray that was done this morning at the chest tube was clamped for approximately ____ lungs do appear to be reexpanded without any visible gross pneumothorax with the limited chest x-ray. IMPRESSION: 1. Spontaneous pneumothorax with history of chronic obstructive pulmonary disease with possibility of subpleural bleb resulting in recurrent pneumothorax. There was no evidence of acute exacerbation. 2. Acute hypoxic respiratory failure secondary to the current acute nontraumatic pneumothorax. 3. The patient with history of coronary artery disease. 4. Essential hypertension. 5. Acute kidney injury with chronic kidney disease mostly secondary to intravascular volume depletion of the patient prerenal resolving from yesterday admission. 6. History of mitral valve replacement previously as well. PLAN OF MANAGEMENT: The chest tube will remain clamped for the next [address] scan of the chest will be done tomorrow morning to assess the lung parenchyma. If the patient does develop respiratory distress, worsening with hypoxia or any chest discomfort, chest tube clamp will be removed and will be placed back to the suction -20 cm of water. Pain management of the patient to be continued as already ordered by the primary care physician. Oxygen supplementation, maintain pulse ox 92% or greater. Other additional treatment changes will be ordered made for this patient based on progression of his illness accordingly. Other usual care, plan of therapy and care plan and management. Thanks for allowing me to participate in the care of this patient. [place], [place] REPORT OF CONSULTATION NAME: FANTA JRSANJAY Maximo UNIT #: [id number] ROOM: [facility] DOCTOR: NANCY LEGGETT MD BIRTHDATE: [birth year] NANCY GO MD CM:CONSTR:REPORT OF CONSULTATION 1304 04/17/18 3790 interface
--- NOTE | ~2018-04-16 | EKG ---
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
[2018-04-16] MEDS ORDERED: LORAZEPAM0.5 MG PO (09:23)
[2018-04-16] MEDS ORDERED: ASPIRIN ADULT L81 M1 PO (09:24)
[2018-04-16 09:29] LABS: BASO # 0.1 10*3/uL (0.0-0.1); BASO % 1.2 % (0.0-1.0); EOS # 0.2 10*3/uL (0.0-0.4); EOS % 2.4 % (1.0-4.0); HEMATOCRIT 50.3 % (42.0-52.0); HEMOGLOBIN 16.5 g/dl (14.0-18.0); LYMPH # 1.8 10*3/uL (1.3-4.4); MEAN CELL VOLUME 88.6 fl (80.0-94.0); MEAN CORPUSCULAR HGB CONC 32.8 g/dl (33.0-37.0); MEAN PLATELET VOLUME 10.2 fl (9.6-12.3); MONO # 0.8 10*3/uL (0.1-1.0); MONO % 7.7 % (3.0-9.0); NEUT % 70.1 % (47.0-73.0); PLATELET COUNT AUTOMATED 205 10*3/uL (130-400); RED BLOOD COUNT 5.68 10*6/uL (4.50-5.90); RED CELL DISTRI WIDTH 15.1 % (0-14.5)
[2018-04-16 09:39] LABS: ACT PARTIAL THROMBO TIME 26.2 SECONDS (20.8-31.5)
[2018-04-16 09:46] LABS: ALBUMIN 3.8 gm/dl (3.1-4.5); ALKALINE PHOSPHATASE 118 U/L (45-117); BUN 24 mg/dl (7-24); CHLORIDE 104 mmol/L (98-107); CREATININE 1.54 mg/dL (0.70-1.30); LIPASE 243 U/L (73-393); POTASSIUM 3.7 mmol/L (3.5-5.1); SGOT/AST 21 IU/L (3-35); SGPT/ALT 23 U/L (12-78); SODIUM 139 mmol/L (136-145)
[2018-04-16 09:47] LABS: TROPONIN I < 0.015 ng/ml (<0.045)
[2018-04-17 04:00] VITALS: BP 122/68
[2018-04-17 06:35] LABS: BASO # 0.1 10*3/uL (0.0-0.1); BASO % 0.6 % (0.0-1.0); EOS # 0.2 10*3/uL (0.0-0.4); EOS % 1.7 % (1.0-4.0); HEMATOCRIT 46.1 % (42.0-52.0); HEMOGLOBIN 15.3 g/dl (14.0-18.0); LYMPH # 1.3 10*3/uL (1.3-4.4); MEAN CELL VOLUME 88.3 fl (80.0-94.0); MEAN CORPUSCULAR HGB 29.3 pg (27.0-31.0); MEAN CORPUSCULAR HGB CONC 33.2 g/dl (33.0-37.0); MEAN PLATELET VOLUME 10.8 fl (9.6-12.3); MONO % 8.6 % (3.0-9.0); NEUT # 8.6 10*3/uL (2.3-7.9); NEUT % 76.5 % (47.0-73.0); PLATELET COUNT AUTOMATED 180 10*3/uL (130-400); RED BLOOD COUNT 5.22 10*6/uL (4.50-5.90); RED CELL DISTRI WIDTH 15.2 % (0-14.5); WHITE BLOOD COUNT 11.2 10*3/uL (4.8-10.8)
[2018-04-17 07:15] LABS: BUN 24 mg/dl (7-24); CHLORIDE 108 mmol/L (98-107); CREATININE 1.35 mg/dL (0.70-1.30); POTASSIUM 3.9 mmol/L (3.5-5.1); SODIUM 142 mmol/L (136-145)
[2018-04-17 07:19] LABS: CHOLESTEROL 159 mg/dL (<200); FREE T4 1.16 ng/dl (0.76-1.46); HDL CHOLESTEROL 31 mg/dl (40-60); LDL CHOLESTEROL 84 mg/dL (9-159); PHOSPHOROUS 2.9 mg/dL (2.5-4.9); TRIGLYCERIDES 222 mg/dl (<150); VLDL CHOLESTEROL 44 mg/dL (6-40)
[2018-04-17 08:00] VITALS: BP 134/94
[2018-04-17 09:34] LABS: VITAMIN D, 25-HYDROXY 15.5 ng/mL (30-100)
[2018-04-17 12:00] VITALS: BP 144/84
[2018-04-17 16:00] VITALS: BP 122/68
[2018-04-17 20:00] VITALS: BP 143/84
[2018-04-18] VITALS: BP 137/89
[2018-04-18 04:00] VITALS: BP 134/84
[2018-04-18 05:30] LABS: BUN 24 mg/dl (7-24); CHLORIDE 106 mmol/L (98-107); CREATININE 1.23 mg/dL (0.70-1.30); POTASSIUM 3.9 mmol/L (3.5-5.1); SODIUM 141 mmol/L (136-145)
[2018-04-18 06:13] LABS: BASO # 0.1 10*3/uL (0.0-0.1); BASO % 0.5 % (0.0-1.0); EOS # 0.1 10*3/uL (0.0-0.4); EOS % 1.5 % (1.0-4.0); HEMATOCRIT 47.4 % (42.0-52.0); HEMOGLOBIN 15.5 g/dl (14.0-18.0); LYMPH # 1.5 10*3/uL (1.3-4.4); MEAN CELL VOLUME 88.6 fl (80.0-94.0); MEAN CORPUSCULAR HGB CONC 32.7 g/dl (33.0-37.0); MEAN PLATELET VOLUME 10.6 fl (9.6-12.3); MONO # 0.7 10*3/uL (0.1-1.0); MONO % 7.7 % (3.0-9.0); NEUT # 7.1 10*3/uL (2.3-7.9); NEUT % 73.8 % (47.0-73.0); PLATELET COUNT AUTOMATED 173 10*3/uL (130-400); RED BLOOD COUNT 5.35 10*6/uL (4.50-5.90); RED CELL DISTRI WIDTH 15.2 % (0-14.5); WHITE BLOOD COUNT 9.6 10*3/uL (4.8-10.8)
[2018-04-18 08:00] VITALS: BP 136/70; BP 141/90
[2018-04-18 12:00] VITALS: BP 150/60
== END 2018-04-18 13:09 | disposition short-term general hospital (02) | DRG 199 ==
LOC: ED 09:09 → ICCU 10:39 → EDHOLD 10:39 → ICCU 10:49
PROVIDERS: Emergency Medicine; Internal Medicine
PROC: 0W9B30Z Drainage of Left Pleural Cavity with Drainage Device, Percutaneous Approach (ICD-10-PCS; principal; 2018-04-16)
DX: J93.83 Other pneumothorax (principal); J96.01 Acute respiratory failure with hypoxia; R65.10 Systemic inflammatory response syndrome (SIRS) of non-infectious origin without acute organ dysfunction; T79.7XXA Traumatic subcutaneous emphysema, initial encounter; T85.628A Displacement of other specified internal prosthetic devices, implants and grafts, initial encounter; N17.9 Acute kidney failure, unspecified; Z79.82 Long term (current) use of aspirin; I25.10 Atherosclerotic heart disease of native coronary artery without angina pectoris; K58.9 Irritable bowel syndrome, unspecified; F41.9 Anxiety disorder, unspecified; N18.9 Chronic kidney disease, unspecified; I12.9 Hypertensive chronic kidney disease with stage 1 through stage 4 chronic kidney disease, or unspecified chronic kidney disease; R07.89 Other chest pain; I48.91 Unspecified atrial fibrillation; R73.9 Hyperglycemia, unspecified; E66.3 Overweight; K57.90 Diverticulosis of intestine, part unspecified, without perforation or abscess without bleeding; E78.5 Hyperlipidemia, unspecified; K21.9 Gastro-esophageal reflux disease without esophagitis; Z96.653 Presence of artificial knee joint, bilateral; X58.XXXA Exposure to other specified factors, initial encounter; Y83.8 Other surgical procedures as the cause of abnormal reaction of the patient, or of later complication, without mention of misadventure at the time of the procedure; Y92.238 Other place in hospital as the place of occurrence of the external cause; Z95.1 Presence of aortocoronary bypass graft; Z79.01 Long term (current) use of anticoagulants; Z88.2 Allergy status to sulfonamides; Z88.1 Allergy status to other antibiotic agents; Z79.899 Other long term (current) drug therapy; Z90.49 Acquired absence of other specified parts of digestive tract; I25.2 Old myocardial infarction; Z82.49 Family history of ischemic heart disease and other diseases of the circulatory system; Z68.28 Body mass index [BMI] 28.0-28.9, adult

== ENCOUNTER 2018-05-07 21:29 | Emergency (ER) | payer MEDICARE, OTHER ==
[~2018-05-07] VITALS: Ht 175.2 cm; Wt 86.2 kg
--- NOTE | ~2018-05-07 | EKG ---
[place], [place] ELECTROCARDIOGRAM REPORT NAME: SANJAY JEWELL JR UNIT #: [id number] ROOM: DOCTOR: FROILAN DRAFT REPORT BIRTHDATE: [birth year] [facility] Test Date: 2018-05-07 Test Time: 21:27:40 Pat Name: SANJAY JEWELL Department: Room: Gender: M Line Locator: : 1945 Requested By: FIDENCIO BELCHER Order Number: [id number] Reading MD: Measurements Intervals [place] Rate: 118 P: -85 NC: 139 QRS: 77 QRSD: 104 T: 39 QT: 324 QTc: 455 Interpretive Statements Sinus or ectopic atrial tachycardia Multiple ventricular premature complexes Minimal ST depression, inferior leads Compared to ECG 04/16/2018 14:59:54 Ventricular premature complex(es) now present ST (T wave) deviation now present CM:EKGRPT:ELECTROCARDIOGRAM REPORT 26 55 FIDENCIO DIAZ DRAFT REPORT FIDENCIO BELCHER DO
--- NOTE | ~2018-05-07 | EKG ---
[place], [place] ELECTROCARDIOGRAM REPORT NAME: SANJAY JEWELL JR UNIT #: [id number] ROOM: DOCTOR: FROILAN DRAFT REPORT BIRTHDATE: [birth year] [facility] Test Date: 2018-05-08 Test Time: 00:40:08 Pat Name: SANJAY JEWELL Department: Room: Gender: M Teaching Dietitian: : 1945 Requested By: FIDENCIO BELCHER Order Number: [id number] Reading MD: Measurements Intervals [place] Rate: 100 P: -68 DC: 182 QRS: -6 QRSD: 92 T: 8 QT: 355 QTc: 458 Interpretive Statements Sinus or ectopic atrial tachycardia Multiple premature complexes, vent \T\ supraven Abnormal R-wave progression, late transition Compared to ECG 04/16/2018 14:59:54 No significant changes CM:EKGRPT:ELECTROCARDIOGRAM REPORT 0040 2144 FIDENCIO DIAZ DRAFT REPORT FIDENCIO BELCHER DO
[~2018-05-07 21:29] MED LIST changes: +ASPIRIN ADULT L81 M1 PO; +LORAZEPAM0.5 MG PO
[2018-05-07 22:05] LABS: BASO # 0.1 10*3/uL (0.0-0.1); BASO % 0.9 % (0.0-1.0); EOS # 0.5 10*3/uL (0.0-0.4); EOS % 4.4 % (1.0-4.0); HEMATOCRIT 47.7 % (42.0-52.0); HEMOGLOBIN 15.9 g/dl (14.0-18.0); LYMPH # 1.9 10*3/uL (1.3-4.4); LYMPH % 17.6 % (27.0-41.0); MEAN CORPUSCULAR HGB 29.7 pg (27.0-31.0); MEAN CORPUSCULAR HGB CONC 33.3 g/dl (33.0-37.0); MEAN PLATELET VOLUME 10.5 fl (9.6-12.3); MONO # 0.8 10*3/uL (0.1-1.0); MONO % 7.4 % (3.0-9.0); NEUT # 7.3 10*3/uL (2.3-7.9); NEUT % 69.1 % (47.0-73.0); PLATELET COUNT AUTOMATED 208 10*3/uL (130-400); RED BLOOD COUNT 5.36 10*6/uL (4.50-5.90); RED CELL DISTRI WIDTH 14.7 % (0-14.5); WHITE BLOOD COUNT 10.6 10*3/uL (4.8-10.8)
[2018-05-07 22:20] LABS: ACT PARTIAL THROMBO TIME 26.7 SECONDS (20.8-31.5)
[2018-05-07 22:22] LABS: ALBUMIN 3.6 gm/dl (3.1-4.5); ALKALINE PHOSPHATASE 104 U/L (45-117); BUN 26 mg/dl (7-24); CHLORIDE 110 mmol/L (98-107); CREATININE 1.54 mg/dL (0.70-1.30); POTASSIUM 3.5 mmol/L (3.5-5.1); SGOT/AST 23 IU/L (3-35); SGPT/ALT 26 U/L (12-78); SODIUM 144 mmol/L (136-145); TOTAL PROTEIN 7.5 gm/dL (6.4-8.2)
[2018-05-07 22:27] LABS: TROPONIN I < 0.015 ng/ml (<0.045)
[2018-05-08 00:55] VITALS: BP 133/82
== END 2018-05-08 02:28 | disposition short-term general hospital (02) ==
LOC: ED 21:29
PROVIDERS: Emergency Medicine
DX: J93.9 Pneumothorax, unspecified (principal); I25.10 Atherosclerotic heart disease of native coronary artery without angina pectoris; J44.9 Chronic obstructive pulmonary disease, unspecified; K21.9 Gastro-esophageal reflux disease without esophagitis; E78.5 Hyperlipidemia, unspecified; I12.9 Hypertensive chronic kidney disease with stage 1 through stage 4 chronic kidney disease, or unspecified chronic kidney disease; N18.9 Chronic kidney disease, unspecified; Z88.1 Allergy status to other antibiotic agents; Z88.2 Allergy status to sulfonamides; Z88.8 Allergy status to other drugs, medicaments and biological substances; Z79.899 Other long term (current) drug therapy; Z79.82 Long term (current) use of aspirin; Z95.1 Presence of aortocoronary bypass graft; Z87.891 Personal history of nicotine dependence

== ENCOUNTER 2018-05-24 07:13 | Inpatient (IN) | payer MEDICARE, OTHER ==
[~2018-05-24] VITALS: Ht 175.2 cm; Wt 86.0 kg
--- NOTE | ~2018-05-24 | EKG ---
[place], [place] ELECTROCARDIOGRAM REPORT NAME: SANJAY JEWELL JR UNIT #: [id number] ROOM: 425 DOCTOR: FROILAN DRAFT REPORT BIRTHDATE: [birth year] [facility] Test Date: 2018-05-24 Test Time: 07:39:06 Pat Name: SANJAY JEWELL Department: Room: 005 Gender: M Director Business Development: : 1945 Requested By: ULICES MICHELE Order Number: [id number] Reading MD: Kenyatta Isabel MD Measurements Intervals [place] Rate: 86 P: -15 ND: 171 QRS: 12 QRSD: 99 T: 13 QT: 393 QTc: 470 Interpretive Statements Sinus rhythm Multiple premature complexes, vent \T\ supraven Probable left ventricular hypertrophy Baseline wander in lead(s) V2,V5 Compared to ECG 05/08/2018 00:40:08 Ectopic atrial rhythm no longer present Electronically Signed On 05-25-2018 9:28:12 PST by Kenyatta Isabel MD CM:EKGRPT:ELECTROCARDIOGRAM REPORT 0739 0928 ULICES DIAZ DRAFT REPORT ULICES MICHELE DO
--- NOTE | ~2018-05-24 | PR ---
[place], [place] PROGRESS NOTE NAME: SAN[facility]AY JEWELL JR [facility] #: [id number] UNIT #: [id number] ROOM: 425 DOCTOR: DONAVAN CORDON MD,NANCY BIRTHDATE: [birth year] DOS: 05/26/2018 SUBJECTIVE: The patient noted comfortable at this time without any acute distress. Shortness of breath and wheezing was noted decreased, but not completely resolved. Denies symptoms of chest pain, fever or chills. OBJECTIVE: VITAL SIGNS: For the patient, which have been recorded shows a normal temperature, respiratory rate of 20, heart rate 87, blood pressure 141/72. The pulse ox saturation for this patient 95% saturation on room air. HEENT: Examination shows head was atraumatic. Eyes nonicterus. NECK: Supple. CARDIOVASCULAR: S1, S2 audible. LUNGS: Without any crackles. Mild expiratory wheezing. Decreased breath sounds in the left lower lung. ABDOMEN: Soft, nontender. Bowel sounds present. EXTREMITIES: No acute edema. IMPRESSION: 1. The patient with acute exacerbation of chronic obstructive pulmonary disease, reduction of respiratory symptoms, still noted with mild bilateral expiratory wheezing. 2. Small pleural fluid was also noted on the left side as well, status post VATS procedure with left upper lobe resection and bullectomy. PLAN OF MANAGEMENT: The patient could be discharged home on tapering dose of prednisone. Other supportive therapy, plan of management, care plan for the patient. Monitor the pleural fluid, reassessment approval for thoracentesis could be done if the pleural fluid enlarges. NANCY GO MD CM:PNTRANS [id number] NANCY CORDON MD 05/26/18 1357 interface
--- NOTE | ~2018-05-24 | CON ---
[place], [place] REPORT OF CONSULTATION NAME: SANJAY JEWELL JR [facility] #: [id number] UNIT #: [id number] ROOM: 425 DOCTOR: DONAVAN CORDON MDNANCY BIRTHDATE: [birth year] DOS: 05/25/2018 PULMONARY CONSULTATION, EVALUATION AND MANAGEMENT REASON FOR CONSULTATION: Assess the patient's current pleural fluid, symptoms of shortness of breath with his post recent surgery. HISTORY OF PRESENT ILLNESS: This is a 72-year-old white male who has been known to [place] in 04/2018 hospitalized, noted with acute spontaneous pneumothorax on the left side of the chest. The patient was also noted with air leak at that time as well initially managed in this hospital, and later on transferred to [facility] for further care, no current air leak. The patient was assessed and managed in [facility]. He underwent VATS procedure. Bullectomy done of the left upper lobe successfully. The surgery was completed on 05/09/2018. The patient was discharged home on 05/13/2018. He was noted in usual state of health in the last 24 hours and developed increased symptoms of shortness breath with tightness in the chest. There were no symptoms of coughing reported. Denies symptoms of hemoptysis. The patient does have some symptoms of wheezing. REVIEW OF SYSTEMS: CONSTITUTIONAL SYMPTOMS: Fatigue and tiredness reported without any symptoms of fever or chills. EYES: Denies any burning, redness, or tenderness. EARS, NOSE, THROAT SYMPTOMS: Denies sore throat, hoarseness, otalgia, postnasal drainage. CARDIOVASCULAR: Denies angina, pain of the lower extremities, or palpitations. GASTROINTESTINAL SYMPTOMS: Denies dysphagia, nausea, vomiting, diarrhea, abdominal pain, hematemesis, or melena. GENITOURINARY SYMPTOMS: Denies dysuria, suprapubic pain, or urinary incontinence. MUSCULOSKELETAL SYMPTOMS: Denies joint pain or deformities. SKIN: No lesions or rashes reported. CENTRAL NERVOUS SYSTEM: Denies symptoms of dizziness, headache, diplopia, syncopal episode, or general weakness reported. Remaining systems were reviewed. They were noted all negative. PAST MEDICAL HISTORY: Known with: 1. 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 2. Coronary artery disease with bypass grafting in 2018. 3. Chronic kidney disease, stage 3. 4. General anxiety disorder. 5. Diverticulosis. 6. Chronic obstructive pulmonary disease. 7. Gastroesophageal reflux. 8. Abdominal aortic aneurysm. 9. Hyperlipidemia. 10. Essential hypertension. 11. Irritable bowel syndrome. [place], [place] REPORT OF CONSULTATION NAME: SANJAY JEWELL JR UNIT #: [id number] ROOM: 425 DOCTOR: NANCY LEGGETT MD BIRTHDATE: [birth year] PAST SURGICAL HISTORY: 1. Bilateral cataract extraction and lens implantation. 2. Hernia repair. 3. Cholecystectomy. 4. Coronary artery bypass grafting in 10/2017. 5. Cholecystectomy. 6. Chest tube insertion in 04/2018 on the left side. 7. Left VATS procedure with bullectomy of the left upper lobe on 05/09/2018 in [facility]. 8. Bilateral total knee replacement. 9. Cardiac catheterization. SOCIAL HISTORY: The patient is and lives at home. Denies history of alcohol use or illicit drug use. Tobacco use known since teenager, pack of cigarettes per day, discontinued about 30 years ago. No tobacco use was reported about 30 years or so. FAMILY HISTORY: The patient's father at age 8686 years old with complications of coronary artery disease. Mother at the age of 5050 years old with complication of abdominal aortic aneurysm and acute myocardial infarction. HOME MEDICATIONS: Listed use of aspirin, Symbicort, Bentyl, DuoNeb, lorazepam, metoprolol succinate, and omeprazole. DRUG ALLERGIES: REPORTED ALLERGIC TO THE STATIN DRUGS, THE PATIENT WITH MUSCLE PAIN. SULFA DRUGS CAUSING HIVES, AMIODARONE CAUSING DIZZINESS AND MIGRAINOUS HEADACHE. ELIQUIS WITH DIZZINESS AND MIGRAINE HEADACHE. DOXYCYCLINE CAUSING SKIN HIVES. PHYSICAL EXAMINATION: GENERAL: This is a 72-year-old male currently lying in the bed without any acute distress this morning of assessment. His height recorded by the nursing staff on current admission with height of 5 feet 9 inches, weight of 189 pounds, and BMI 28. VITAL SIGNS: Normal temperature, respiratory rate 18-20, heart rate of 113 on admission, currently noticed 74, blood pressure 140/76-145/51 this morning. The pulse oxygen saturation is 96% on 3-4 liters of oxygen supplementation. HEENT: Head was atraumatic. Eyes nonicterus. NECK: Supple. Head was atraumatic. CARDIOVASCULAR SYSTEM: S1, S2 audible without any added sounds. LUNGS: The patient with decreased breath sounds on the left chest. Healing wound of recent mini thoracotomy as well. Wheezing was noted in the lungs bilaterally, more on the right than the left side. ABDOMEN: Soft, nontender. Bowel sounds present. EXTREMITIES: Without any acute edema. MUSCULOSKELETAL: Without acute deformities. NEUROLOGIC: Cranial nerves 2-12 intact. VISIBLE SKIN: No lesions or rashes present. [place], [place] REPORT OF CONSULTATION NAME: SANJAY JEWELL JR UNIT #: [id number] ROOM: 425 DOCTOR: NANCY LEGGETT MD BIRTHDATE: [birth year] LABORATORY DATA: The chest x-ray that was done yesterday in the Emergency Room with small pleural fluid noted with changes of COPD, hyperinflation, and past coronary bypass grafting as well. The CT scan of the chest that was completed yesterday was reviewed shows small left pleural fluid without any evidence of acute pulmonary infiltration or other acute abnormalities. Postoperative changes were noted. Adenoma was suggested of the left adrenal gland as well. However, the mass lesions were reported in both adrenal glands. CBC yesterday on admission; WBC count 11.9, remaining CBC normal. The lactic acid 2.2, follow up 1.1 yesterday. PT/PTT were normal. CMP yesterday; normal BUN and creatinine. Remaining electrolytes were grossly normal. CBC this morning; WBC count 12.0, hemoglobin and hematocrit normal, platelet count noted as normal. CMP that was done this morning; BUN normal, creatinine was normal, glucose 101. Other electrolytes grossly normal. Albumin is 2.7. IMPRESSION: The patient who has been currently admitted to the hospital noted with: 1. Acute exacerbation of chronic obstructive pulmonary disease is most likely cause of current shortness of breath. 2. Small left-sided pleural effusion, post-thoracotomy with VATS procedure. It does not require any further intervention. The thoracentesis could be performed, but there is a high risk of complications with that, which would not be done. Pleural fluid will be monitored. 3. Status post recent surgery, VATS procedure, and left upper lobectomy with bullectomy. 4. Past history of coronary artery disease and coronary artery bypass grafting. 5. Over debility was noted as a result of current acute illnesses. PLAN OF MANAGEMENT: The patient was started on Solu-Medrol 40 mg b.i.d. Continue bronchodilators. Monitoring of the pleural fluid with a chest x-ray intermittently. Sputum for Gram stain and culture will be ordered if the patient is able to expectorate. There is no evidence of acute infection at the present time. The patient could be given oral antibiotic in case of infection isolated. Continue use of the oral antibiotics as well. Other additional treatment changes will be made based on progression of his illness. Thanks for allowing me to participate in the care of this patient. NANCY GO MD CM:CONSTR:REPORT OF CONSULTATION 1220 05/26/18 0129 interface
[2018-05-24 07:15] VITALS: BP 183/109
[2018-05-24] MEDS ORDERED: METOPROLOL SUCC25 M2 PO (07:21)
[2018-05-24 07:36] LABS: BASO # 0.2 10*3/uL (0.0-0.1); BASO % 1.3 % (0.0-1.0); EOS # 0.7 10*3/uL (0.0-0.4); EOS % 5.8 % (1.0-4.0); HEMATOCRIT 44.7 % (42.0-52.0); HEMOGLOBIN 14.4 g/dl (14.0-18.0); LYMPH # 1.6 10*3/uL (1.3-4.4); LYMPH % 13.4 % (27.0-41.0); MEAN CELL VOLUME 89.9 fl (80.0-94.0); MEAN CORPUSCULAR HGB CONC 32.2 g/dl (33.0-37.0); MEAN PLATELET VOLUME 9.5 fl (9.6-12.3); MONO % 8.5 % (3.0-9.0); NEUT # 8.4 10*3/uL (2.3-7.9); NEUT % 70.2 % (47.0-73.0); PLATELET COUNT AUTOMATED 273 10*3/uL (130-400); RED BLOOD COUNT 4.97 10*6/uL (4.50-5.90); RED CELL DISTRI WIDTH 14.5 % (0-14.5); WHITE BLOOD COUNT 11.9 10*3/uL (4.8-10.8)
[2018-05-24 07:45] LABS: ACT PARTIAL THROMBO TIME 26.2 SECONDS (20.8-31.5)
[2018-05-24 07:54] LABS: ALBUMIN 2.9 gm/dl (3.1-4.5); ALKALINE PHOSPHATASE 82 U/L (45-117); BUN 20 mg/dl (7-24); CHLORIDE 108 mmol/L (98-107); CREATININE 1.26 mg/dL (0.70-1.30); LIPASE 151 U/L (73-393); POTASSIUM 3.5 mmol/L (3.5-5.1); SGOT/AST 14 IU/L (3-35); SGPT/ALT 21 U/L (12-78); SODIUM 140 mmol/L (136-145); TOTAL PROTEIN 7.4 gm/dL (6.4-8.2)
[2018-05-24 07:57] LABS: TROPONIN I < 0.015 ng/ml (<0.045)
[2018-05-24 09:40] VITALS: BP 147/89
[2018-05-24 13:45] VITALS: BP 184/106
--- NOTE | 2018-05-24 13:45 | NUR ---
[employer] 72, admitted to , under the services of ANGELES Reyes DO with a diagnosis of . Chief complaint is SOB. Patient arrived via bed from ER. Monitor applied. Initial assessment completed. Vital signs taken and recorded. ANGELES REYES DO notified of admission to the unit. Orders received. See assessment for past medical history, medications and allergies. Patient and/or family oriented to unit. [facility] visitation policy reviewed. Clothing/patient valuable form completed. MANUELA BHAT
[2018-05-24] MEDS ORDERED: COMBIVENT RESPIM4 GM INH (13:49)
[2018-05-24] MEDS ORDERED: SYMB160 INH (13:49)
--- NOTE | 2018-05-24 14:31 | NUR ---
DR. DAMON NOTIFIED OF PT'S BP.
--- NOTE | 2018-05-24 14:37 | NUR ---
DR. REESE NOTIFIED OF CONSULT.
--- NOTE | 2018-05-24 14:40 | NUR ---
DR. GO NOTIFIED OF CONSULT.
[2018-05-24] MEDS ORDERED: ATIVAN0.5 MG PO (14:49)
[2018-05-24 16:00] VITALS: BP 152/72
--- NOTE | 2018-05-24 17:56 | NUR ---
NORCO GIVEN FOR C/O GENERALIZED DISCOMFORT. WILL MONITOR.
[2018-05-24 20:00] VITALS: BP 147/72
[2018-05-25] VITALS: BP 140/76
--- NOTE | 2018-05-25 06:00 | NUR ---
PATIENT IN BED TALKING ON CELL PHONE AT THIS TIME. NO SIGNS OR SYMPTOMS OF DISTRESS NOTED. DENIES COMPLAINTS OF PAIN OR DISCOMFORT. WILL CONTINUE TO MONITOR. CALL LIGHT IN REACH.
[2018-05-25 06:11] LABS: BASO # 0.2 10*3/uL (0.0-0.1); BASO % 1.5 % (0.0-1.0); EOS # 0.8 10*3/uL (0.0-0.4); EOS % 6.6 % (1.0-4.0); HEMATOCRIT 42.2 % (42.0-52.0); HEMOGLOBIN 13.5 g/dl (14.0-18.0); LYMPH # 1.3 10*3/uL (1.3-4.4); LYMPH % 10.9 % (27.0-41.0); MEAN CELL VOLUME 89.6 fl (80.0-94.0); MEAN CORPUSCULAR HGB 28.7 pg (27.0-31.0); MONO # 1.1 10*3/uL (0.1-1.0); MONO % 9.1 % (3.0-9.0); NEUT # 8.6 10*3/uL (2.3-7.9); NEUT % 71.2 % (47.0-73.0); PLATELET COUNT AUTOMATED 251 10*3/uL (130-400); RED BLOOD COUNT 4.71 10*6/uL (4.50-5.90); RED CELL DISTRI WIDTH 14.5 % (0-14.5)
[2018-05-25 06:16] LABS: ALBUMIN 2.7 gm/dl (3.1-4.5); BUN 17 mg/dl (7-24); CHLORIDE 108 mmol/L (98-107); CHOLESTEROL 156 mg/dL (<200); CREATININE 1.21 mg/dL (0.70-1.30); HDL CHOLESTEROL 34 mg/dl (40-60); LDL CHOLESTEROL 96 mg/dL (9-159); PHOSPHOROUS 3.1 mg/dL (2.5-4.9); POTASSIUM 3.8 mmol/L (3.5-5.1); SGOT/AST 11 IU/L (3-35); SGPT/ALT 19 U/L (12-78); SODIUM 140 mmol/L (136-145); TOTAL PROTEIN 6.6 gm/dL (6.4-8.2); TRIGLYCERIDES 128 mg/dl (<150); VLDL CHOLESTEROL 26 mg/dL (6-40)
[2018-05-25 06:22] LABS: ALKALINE PHOSPHATASE 61 U/L (45-117); FREE T4 1.43 ng/dl (0.76-1.46)
[2018-05-25 06:44] LABS: ACT PARTIAL THROMBO TIME 26.9 SECONDS (20.8-31.5); INTERNATIONAL NORM RATIO 1.1 (2.0-3.5)
[2018-05-25 07:45] LABS: VITAMIN D, 25-HYDROXY 16.2 ng/mL (30-100)
[2018-05-25 08:00] VITALS: BP 145/51
--- NOTE | 2018-05-25 08:48 | NUR ---
TYLENOL GIVEN FOR C/O HEADACHE. WILL MONITOR.
--- NOTE | 2018-05-25 09:00 | NUR ---
Paste Mixing Supervisor in to talk to patient. Patient states lives at home with . There are no steps in the home. Physician: deandre marin [facility]: [facility] Home health services: none Patient's level of ADLs: INDEPENDENT Patient has working utilities: all working DME: pradip Follow-up physician's appointment after d/c: will be made by hospitalist nurse director upon discharge Does patient want to access PORTAL?: no Discharge plan discussed with patient, patient lives at home with , is independent in adls and ambulation, patient will be going home when able and denies any home needs. JOEL REECE
--- NOTE | 2018-05-25 09:50 | NUR ---
TYLENOL EFFECTIVE PER PT.
[2018-05-25 12:00] VITALS: BP 146/91
[2018-05-25 16:00] VITALS: BP 124/58
[2018-05-25 20:00] VITALS: BP 125/62
--- NOTE | 2018-05-25 22:12 | NUR ---
PATIENT MEDICATED WITH TYLENOL FOR COMPLAINTS OF A HEADACHE FOR BREATHING TREATMENT. NO SIGNS OR SYMPTOMS OF DISTRESS NOTED. RESPIRATIONS REGULAR AND NON-LABORED. WILL CONTINUE TO MONITOR. CALL LIGHT IN REACH.
[2018-05-26] VITALS: BP 112/49
[2018-05-26 07:39] LABS: HEMATOCRIT 45.2 % (42.0-52.0); HEMOGLOBIN 14.7 g/dl (14.0-18.0); MEAN CORPUSCULAR HGB 28.9 pg (27.0-31.0); MEAN CORPUSCULAR HGB CONC 32.5 g/dl (33.0-37.0); MEAN PLATELET VOLUME 9.8 fl (9.6-12.3); PLATELET COUNT AUTOMATED 319 10*3/uL (130-400); RED BLOOD COUNT 5.08 10*6/uL (4.50-5.90); RED CELL DISTRI WIDTH 14.2 % (0-14.5); WHITE BLOOD COUNT 13.4 10*3/uL (4.8-10.8)
[2018-05-26 07:58] LABS: BUN 19 mg/dl (7-24); CHLORIDE 110 mmol/L (98-107); CREATININE 1.26 mg/dL (0.70-1.30); POTASSIUM 4.2 mmol/L (3.5-5.1); SODIUM 142 mmol/L (136-145)
[2018-05-26 08:00] VITALS: BP 141/72
[2018-05-26 08:04] LABS: TOTAL CELLS COUNTED 100 #CELLS
[2018-05-26 08:05] LABS: PLATELET SUFFICIENCY NORMAL (NORMAL)
--- NOTE | 2018-05-26 09:00 | NUR ---
case management visits with patient, patient states he will be going home when able and denies any home needs
[2018-05-26] MEDS ORDERED: PREDNISONE10 MG PO (14:03)
[2018-05-26] MEDS ORDERED: CEFUROXIME AXE250 MG PO (14:03)
--- NOTE | 2018-05-26 14:26 | NUR ---
Discharge instructions reviewed with patient/family. Patient receptive and verbalizes understanding. Follow-up care arranged WITH PCP IN 1 WEEK. Written instructions given to patient/family. RFID DEVELOPER REMOVED. HEP LOCK REMOVED. BELONGINGS ACCOUNTED FOR. PT AMBULATED OFF FLOOR IN THE CARE OF HIS . JANI WHATLEY
== END 2018-05-26 14:35 | disposition home or self-care (01) | DRG 862 ==
LOC: ED 07:13 → EDHOLD 12:20 → 4E 12:20 → EDHOLD 12:20 → 4E 13:00
PROVIDERS: Emergency Medicine; Internal Medicine; ADMIT Internal Medicine
DX: T81.49XA Infection following a procedure, other surgical site, initial encounter (principal); E43 Unspecified severe protein-calorie malnutrition; A41.9 Sepsis, unspecified organism; L03.319 Cellulitis of trunk, unspecified; J44.1 Chronic obstructive pulmonary disease with (acute) exacerbation; J90 Pleural effusion, not elsewhere classified; E87.2 Acidosis; I25.810 Atherosclerosis of coronary artery bypass graft(s) without angina pectoris; L02.219 Cutaneous abscess of trunk, unspecified; E87.8 Other disorders of electrolyte and fluid balance, not elsewhere classified; I16.0 Hypertensive urgency; D72.825 Bandemia; R73.9 Hyperglycemia, unspecified; K58.2 Mixed irritable bowel syndrome; K64.9 Unspecified hemorrhoids; K21.9 Gastro-esophageal reflux disease without esophagitis; K57.90 Diverticulosis of intestine, part unspecified, without perforation or abscess without bleeding; K63.5 Polyp of colon; I48.91 Unspecified atrial fibrillation; E78.5 Hyperlipidemia, unspecified; Z96.1 Presence of intraocular lens; I12.9 Hypertensive chronic kidney disease with stage 1 through stage 4 chronic kidney disease, or unspecified chronic kidney disease; Z96.653 Presence of artificial knee joint, bilateral; N18.3 Chronic kidney disease, stage 3 (moderate); K59.00 Constipation, unspecified; E66.3 Overweight; F41.9 Anxiety disorder, unspecified; Y83.8 Other surgical procedures as the cause of abnormal reaction of the patient, or of later complication, without mention of misadventure at the time of the procedure; Z95.1 Presence of aortocoronary bypass graft; Z90.49 Acquired absence of other specified parts of digestive tract; I25.2 Old myocardial infarction; Z87.891 Personal history of nicotine dependence; Z82.49 Family history of ischemic heart disease and other diseases of the circulatory system; Z83.3 Family history of diabetes mellitus; Z88.8 Allergy status to other drugs, medicaments and biological substances; Z88.1 Allergy status to other antibiotic agents; Z88.2 Allergy status to sulfonamides; Z79.899 Other long term (current) drug therapy; Z79.82 Long term (current) use of aspirin; Z98.42 Cataract extraction status, left eye; Z98.41 Cataract extraction status, right eye; Z68.28 Body mass index [BMI] 28.0-28.9, adult; Y92.89 Other specified places as the place of occurrence of the external cause

== ENCOUNTER 2018-06-25 04:50 | Inpatient (IN) | payer MEDICARE, OTHER ==
[2018-06-25] VITALS (7 sets, daily range): BP systolic 140–161; BP diastolic 80–104
[~2018-06-25] VITALS: Ht 175.3 cm; Wt 84.0 kg
--- NOTE | ~2018-06-25 | EKG ---
[place], [place] ELECTROCARDIOGRAM REPORT NAME: SANJAY JEWELL JR UNIT #: [id number] ROOM: 530 DOCTOR: FROILAN DRAFT REPORT BIRTHDATE: [birth year] [facility] Test Date: 2018-06-25 Test Time: 05:32:34 Pat Name: SANJAY JEWELL Department: Room: 530 Gender: M Concrete Foreman: Susana Thao : 1945 Requested By: FIDENCIO BELCHER Order Number: [id number] Reading MD: Tony Nolan MD Measurements Intervals [place] Rate: 102 P: -28 IN: 196 QRS: 10 QRSD: 91 T: 3 QT: 372 QTc: 485 Interpretive Statements Multifocal atrial tachycardia Occasional PVC Borderline ST depression, anterolateral leads Compared to ECG 05/24/2018 07:39:06 No significant change Electronically Signed On 06-29-2018 15:30:55 PST by Tony Nolan MD CM:EKGRPT:ELECTROCARDIOGRAM REPORT 0532 1530 FIDENCIO DIAZ DRAFT REPORT FIDENCIO BELCHER DO
[~2018-06-25 04:50] MED LIST changes: +ATIVAN0.5 MG PO; +CEFUROXIME AXE250 MG PO; +COMBIVENT RESPIM4 GM INH; +METOPROLOL SUCC25 M2 PO
[2018-06-25 05:37] LABS: BASO # 0.1 10*3/uL (0.0-0.1); BASO % 0.8 % (0.0-1.0); EOS # 0.1 10*3/uL (0.0-0.4); EOS % 0.6 % (1.0-4.0); HEMATOCRIT 43.7 % (42.0-52.0); HEMOGLOBIN 14.1 g/dl (14.0-18.0); LYMPH # 0.8 10*3/uL (1.3-4.4); LYMPH % 8.4 % (27.0-41.0); MEAN CELL VOLUME 87.4 fl (80.0-94.0); MEAN CORPUSCULAR HGB 28.2 pg (27.0-31.0); MEAN CORPUSCULAR HGB CONC 32.3 g/dl (33.0-37.0); MEAN PLATELET VOLUME 9.5 fl (9.6-12.3); MONO # 0.4 10*3/uL (0.1-1.0); MONO % 4.2 % (3.0-9.0); NEUT # 7.9 10*3/uL (2.3-7.9); NEUT % 84.9 % (47.0-73.0); PLATELET COUNT AUTOMATED 347 10*3/uL (130-400); RED CELL DISTRI WIDTH 14.6 % (0-14.5); WHITE BLOOD COUNT 9.3 10*3/uL (4.8-10.8)
[2018-06-25 05:54] LABS: ALBUMIN 2.9 gm/dl (3.1-4.5); ALKALINE PHOSPHATASE 91 U/L (45-117); BUN 20 mg/dl (7-24); CHLORIDE 110 mmol/L (98-107); POTASSIUM 3.5 mmol/L (3.5-5.1); SGOT/AST 21 IU/L (3-35); SGPT/ALT 24 U/L (12-78); SODIUM 145 mmol/L (136-145); TOTAL PROTEIN 7.4 gm/dL (6.4-8.2)
[2018-06-25 05:56] LABS: TROPONIN I < 0.015 ng/ml (<0.045)
[2018-06-25 06:00] LABS: INTERNATIONAL NORM RATIO 1.1 (2.0-3.5)
--- NOTE | 2018-06-25 07:29 | NUR ---
NURSES UPSTAIRS STILL RECEIVING OFFGOING REPORT...
--- NOTE | 2018-06-25 08:08 | NUR ---
STAFF STILL IN REPORT UPSTAIRS...
--- NOTE | 2018-06-25 08:09 | NUR ---
ADMISSION PUT IN AT 6:57... TUMBLER OPERATOR CALLS AND SAYS THEY ARE DONE WITH REPORT AND WILL BE ASSIGNING A BED SHORTLY... VANC HAS BEEN STARTED AND NO SIGNS OF ADVERSE REACTION... PATIENT NORMOTENSIVE AND HEART RATE REMAINS SAME...
--- NOTE | 2018-06-25 08:25 | NUR ---
A 72, admitted to 5E, under the services of SAYRA Presley DO with a diagnosis of CHF. Chief complaint is SOB. Patient arrived via stretcher from ER. Monitor applied. Initial assessment completed. Vital signs taken and recorded. SAYRA PRESLEY DO notified of admission to the unit. Orders received. See assessment for past medical history, medications and allergies. Patient and/or family oriented to unit. [address] visitation policy reviewed. Clothing/patient valuable form completed. SKIN INTACT. FLU AND PNEUMONIA VACCINATIONS CURRENT CARMELITA MONZON
[2018-06-25] MEDS ORDERED: SPIRIVA 5 CAPS18 MCG INH (08:54)
--- NOTE | 2018-06-25 09:15 | NUR ---
PTS HOME MEDICATIONS VERIFIED. DR ELENA NOTIFIED
--- NOTE | 2018-06-25 11:29 | NUR ---
PTS MANUAL B[P 160/104. DR ELENA NOTIFIED
--- NOTE | 2018-06-25 16:04 | NUR ---
CALLED DR ELENA PER PT REQUEST FOR A SLEEPING AID TO START TONIGHT. ORDER FOR RESTORIL REEIVED
--- NOTE | 2018-06-25 18:30 | NUR ---
CALLED DR ELENA PER REQUEST OF FAMILY REGARDING ORDER FOR CONTINUOUS IV FLUIDS. FAMILY STATES THEY WOULD RATHER PT NOT HAVE ANY MORE IV FLUIDS. DR ELENA STATED SHE WILL DC.
--- NOTE | 2018-06-25 22:41 | NUR ---
REQUESTING RESTORIL AT THIS TIME. WILL CONT TO MONITOR. CALL LIGHT IN REACH.
--- NOTE | 2018-06-25 23:41 | NUR ---
RESTING QUIETLY AT THIS TIME. NOT AWAKENED PER POLICY. WILL CONT TO MONITOR.
[2018-06-26] VITALS: BP 154/86
--- NOTE | 2018-06-26 02:49 | NUR ---
AWAKE AND WATCHING TV. DENIES NEEDS. WILL CONT TO MONITOR. CALL LIGHT IN REACH.
[2018-06-26 06:03] LABS: BASO # 0.1 10*3/uL (0.0-0.1); EOS # 0.2 10*3/uL (0.0-0.4); EOS % 1.7 % (1.0-4.0); HEMATOCRIT 42.8 % (42.0-52.0); HEMOGLOBIN 13.3 g/dl (14.0-18.0); LYMPH # 1.1 10*3/uL (1.3-4.4); LYMPH % 11.9 % (27.0-41.0); MEAN CELL VOLUME 89.2 fl (80.0-94.0); MEAN CORPUSCULAR HGB 27.7 pg (27.0-31.0); MEAN CORPUSCULAR HGB CONC 31.1 g/dl (33.0-37.0); MEAN PLATELET VOLUME 9.7 fl (9.6-12.3); MONO # 0.8 10*3/uL (0.1-1.0); MONO % 8.8 % (3.0-9.0); NEUT # 6.8 10*3/uL (2.3-7.9); NEUT % 75.2 % (47.0-73.0); PLATELET COUNT AUTOMATED 336 10*3/uL (130-400); RED CELL DISTRI WIDTH 14.7 % (0-14.5); WHITE BLOOD COUNT 9.1 10*3/uL (4.8-10.8)
[2018-06-26 06:27] LABS: ALBUMIN 2.9 gm/dl (3.1-4.5); BUN 18 mg/dl (7-24); CHLORIDE 107 mmol/L (98-107); POTASSIUM 3.5 mmol/L (3.5-5.1); SODIUM 143 mmol/L (136-145)
[2018-06-26 06:32] LABS: ALKALINE PHOSPHATASE 77 U/L (45-117); CREATININE 1.37 mg/dL (0.70-1.30); PHOSPHOROUS 3.4 mg/dL (2.5-4.9); SGOT/AST 19 IU/L (3-35); SGPT/ALT 24 U/L (12-78)
--- NOTE | 2018-06-26 06:44 | NUR ---
DR DALEY NOTIFIED MAG 0.9
[2018-06-26 08:00] VITALS: BP 140/88
--- NOTE | 2018-06-26 08:00 | NUR ---
PATIENT RESTING QUIETLY IN BED. NO DISTRESS NOTED. RESPIRATIONS EASY, REGULAR AT REST. 02 IN USE. PULSE OX 94% VIA 4LNC. LUNGS DIMINISHED T/O. NON-PRODUCTIVE COUGH PER PT. WILL CONTINUE TO MONITOR. VSS. CALL LIGHT WITHIN REACH. SEE SHIFT ASSESSMENT.
--- NOTE | 2018-06-26 08:50 | NUR ---
CALLED REGARDING CONT. PULSE OX ORDER. OKAY TO D/C AT THIS TIME.
--- NOTE | 2018-06-26 10:30 | NUR ---
IN TO SEE PATIENT.
[2018-06-26 12:00] VITALS: BP 150/80
--- NOTE | 2018-06-26 12:00 | NUR ---
PHYSICAL THERAPY PT EVAL COMPLETED ON LEVEL 5: FULL EVALUATION TO FOLLOW. RECOMMEND PT WHILE HERE TO ADDRESS DECREASED FUNCTIONAL STATUS. PT EVAL IS MODERATE COMPLEXITY BASED ON CHART REVIEW, TEST RESULTS AND EVALUATION: 63000. D/C RECOMMENDATIONS ARE HOME WITH AND WOULD RECOMMEND HOME PT IF INDICATED AT TIME OF D/C. THANK YOU FOR REFERRAL BERTHA CHESTER PT
--- NOTE | 2018-06-26 15:30 | NUR ---
PT MEDICATED WITH PO ATIVAN PER PRN ORDER FOR C/O ANXIETY. WILL MONITOR EFFECTIVENESS.
[2018-06-26 16:00] VITALS: BP 155/86
--- NOTE | 2018-06-26 16:30 | NUR ---
ATIVAN EFFECTIVE PER PT.
[2018-06-26 20:00] VITALS: BP 129/82
--- NOTE | 2018-06-26 22:12 | NUR ---
PT MEDICATED W/ATIVAN PER REQUEST TO HELP PROMOTE SLEEP/REDUCE ANXIETY. LIGHTS TURNED OFF. CALL LIGHT IN REACH. WILL CONTINUE TO MONITOR.
--- NOTE | 2018-06-26 23:00 | NUR ---
PT RESTING QUIETLY IN BED AT THIS TIME. PRN ATIVAN EFFECTIVE.
[2018-06-27] VITALS: BP 121/48
[2018-06-27 06:51] LABS: BASO # 0.1 10*3/uL (0.0-0.1); EOS # 0.2 10*3/uL (0.0-0.4); EOS % 2.1 % (1.0-4.0); HEMATOCRIT 39.8 % (42.0-52.0); HEMOGLOBIN 12.3 g/dl (14.0-18.0); LYMPH # 1.1 10*3/uL (1.3-4.4); LYMPH % 11.7 % (27.0-41.0); MEAN CELL VOLUME 89.2 fl (80.0-94.0); MEAN CORPUSCULAR HGB 27.6 pg (27.0-31.0); MEAN CORPUSCULAR HGB CONC 30.9 g/dl (33.0-37.0); MEAN PLATELET VOLUME 9.7 fl (9.6-12.3); MONO # 0.9 10*3/uL (0.1-1.0); NEUT # 7.1 10*3/uL (2.3-7.9); NEUT % 74.6 % (47.0-73.0); PLATELET COUNT AUTOMATED 312 10*3/uL (130-400); RED BLOOD COUNT 4.46 10*6/uL (4.50-5.90); RED CELL DISTRI WIDTH 15.1 % (0-14.5); WHITE BLOOD COUNT 9.5 10*3/uL (4.8-10.8)
[2018-06-27 07:22] LABS: ALBUMIN 2.8 gm/dl (3.1-4.5); BUN 17 mg/dl (7-24); CHLORIDE 111 mmol/L (98-107); CREATININE 1.24 mg/dL (0.70-1.30); POTASSIUM 4.1 mmol/L (3.5-5.1); SGOT/AST 14 IU/L (3-35); SGPT/ALT 20 U/L (12-78); SODIUM 145 mmol/L (136-145); TOTAL PROTEIN 6.5 gm/dL (6.4-8.2)
[2018-06-27 07:23] LABS: ALKALINE PHOSPHATASE 71 U/L (45-117); PHOSPHOROUS 2.6 mg/dL (2.5-4.9)
[2018-06-27 08:00] VITALS: BP 156/86
--- NOTE | 2018-06-27 09:30 | NUR ---
PHYSICAL THERAPY Patient seen this am 1:1 for therapy visit and was sitting EOB upon therapist arrival. Patient presents with continuos O2-2L via NC, reports no new c/o's and records SpO2 94%, HR 89 bpm. Patient is a shallow breather and educated on both purse lip / relaxation breathing techniques. Patient transfers sit to stand, SBA and ambulates CGA without AD, 100'x 2, demonstrating increased gait velocity which led to several bouts of unsteady gait pattern. Patient also demonstrated increased SOB, requiring v/c for purse lip breathing and quick onset of fatigue upon return to EOB sit. Patient needed seated rest break between gait trials with SpO2 86%, HR 101 bpm. Patient demonstrated improved toño on second trial and returned to EOB sit, remaining with call light, tray table and telephone. Will continue per POC as tolerated, total treatment time 18 minutes. Ross Salazar, MUSIC GRAPHER
--- NOTE | 2018-06-27 11:49 | NUR ---
Heavy Repairer in to talk to patient. Patient states lives at HOME with . There are SOME steps in the home. Physician: FANI [facility]acy: [facility] Home health services: NONE Patient's level of ADLs: MINIMAL ASSIST Patient has working utilities: YES DME: NONE Follow-up physician's appointment after d/c: WILL BE MADE BY HOSPITALIST NURSE DIRECTOR ON DISCHARGE Does patient want to access PORTAL?: NO Discharge plan PT STATES HE LIVES AT HOME WITH HIS AND IS INDEPENDENT IN HIS CARE. STATES HE THINKS HE NEEDS OXYGEN AT HOME. INFORMED PT TO TELL MD SO HE COULD ORDER A ASSESSMENT FOR HOME O2 TO SEE IF HE QUALIFIED. ALSO INFORMED HOSPITALIST NURSE DIRECTOR THAT PT WILL NEED ORDER FOR ASSESSMENT. STATES HE HAD IT PREVIOUSLY BUT THEN GOT TOO WELL AND IT WAS DC'D, BUT HE HAS BEEN GETTING MORE SOB LATELY. WILL CONTINUE TO FOLLOW. PT STATES WILL TRANSPORT HIM HOME ON DISCHARGE.. DANETTE BARAKAT
--- NOTE | 2018-06-27 12:30 | NUR ---
INFORMED DR RAJAN THAT PT REQUESTING EVALUATION FOR HOME OW, STATES THEY ARE GOING TO DO IT TOMORROW BECAUSE PT IS NOT READY FOR DC YET. WILL CONTINUE TO FOLLOW.
[2018-06-27 13:00] VITALS: BP 134/88
--- NOTE | 2018-06-27 14:40 | NUR ---
PHYSICAL THERAPY Patient seen this pm 1:1 for therapy visit and was supine in bed with continuos O2-2l via NC, IV treatment, with visiting this afternoon. Patient voices no new c/o's and recorded SpO2 93%, HR 90 prior to treatment, while transfering supine to stand, SBA. Patient ambulates without AD, 60'x 1, 40'x 1, SBA, demonstrating slower toño, decreased heel strike and several bouts of unsteady gait, especially with 180 turn arounds. Patient still fatigues quickly and needed standing rest break on second gait trial < 30 seconds to catch his breath including v/c for purse lip breathing technique. Patient returned to EOB sit and remained with call light, tray table, and cell phone. Will continue per POC as tolerated, total treatment time 18 minutes. Ross Salazar, INSURANCE SPECIAL AGENT
[2018-06-27 16:00] VITALS: BP 143/78
--- NOTE | 2018-06-27 16:40 | NUR ---
PT C/O BLLE EDEMA L>R. PT STATES HE USED TO BE ON PO LASIX AT HOME AND ASKED IF WE WOULD CONSIDER GIVING HIM LASIX WHILE HERE. I SPOKE TO DR GRAF AND HE STATED HE WILL ORDER A ONE TIME DOSE FOR NOW
--- NOTE | 2018-06-27 17:14 | NUR ---
HOME O2 ASSESSMENT RA AT REST - SPO2 87% HR - 94 RR - 26 BP - 143/78 2LNC AT REST - SP02 94% HR- 68 RR- 24 2LNC W/ AMBULATION SP02 86% HR - 96 RR - 32 3LNC W/ AMBULATION SP02 93% HR - 94 RR - 24 RECOVERY SP02 - 92% ON 3LNC HR - 94 RR - 24 BP - 158/88 RN NOTIFED
--- NOTE | 2018-06-27 19:00 | NUR ---
PT AWAKE IN BED DURING BEDSIDE SHIFT REPORT. NO C/O VOICED. CALL LIGHT IN REACH.
[2018-06-27 20:00] VITALS: BP 135/74
[2018-06-28] VITALS: BP 152/90
--- NOTE | 2018-06-28 03:51 | NUR ---
Patient sleeping. Respirations relaxed and easy. Siderails up . Wheelwons on. GUERA JEFF
--- NOTE | 2018-06-28 04:00 | NUR ---
24 HR chart check completed.
[2018-06-28 06:15] LABS: BASO # 0.1 10*3/uL (0.0-0.1); BASO % 1.3 % (0.0-1.0); EOS # 0.3 10*3/uL (0.0-0.4); EOS % 2.8 % (1.0-4.0); HEMATOCRIT 42.1 % (42.0-52.0); LYMPH # 1.4 10*3/uL (1.3-4.4); LYMPH % 12.1 % (27.0-41.0); MEAN CELL VOLUME 88.6 fl (80.0-94.0); MEAN CORPUSCULAR HGB 27.4 pg (27.0-31.0); MEAN CORPUSCULAR HGB CONC 30.9 g/dl (33.0-37.0); MEAN PLATELET VOLUME 9.7 fl (9.6-12.3); MONO % 8.9 % (3.0-9.0); NEUT # 8.2 10*3/uL (2.3-7.9); NEUT % 73.1 % (47.0-73.0); PLATELET COUNT AUTOMATED 326 10*3/uL (130-400); RED BLOOD COUNT 4.75 10*6/uL (4.50-5.90); RED CELL DISTRI WIDTH 15.1 % (0-14.5); WHITE BLOOD COUNT 11.2 10*3/uL (4.8-10.8)
[2018-06-28 06:43] LABS: BUN 18 mg/dl (7-24); CHLORIDE 109 mmol/L (98-107); CREATININE 1.36 mg/dL (0.70-1.30); POTASSIUM 4.1 mmol/L (3.5-5.1); SODIUM 142 mmol/L (136-145)
[2018-06-28 08:00] VITALS: BP 128/82
--- NOTE | 2018-06-28 09:40 | NUR ---
PHYSICAL THERAPY Patient seen this am 1:1 for therapy visit and was sitting EOB upon therapist arrival with continuous O2-2L via NC. Patient reports no new c/o's and was eager to take a walk. Patient transfers sit to stand SBA, ambulating without AD, 150'x 2, SBA, demonstrating increased velocity and several bouts of SOB. Patient needed standing rest break with v/c for purse lip breathing technique due to SpO2 drop 87%, HR 110. Patient completed all gait training without LOB and returned to EOB sit as his arrived for visit. Patient SpO2 returned to 94%, HR 91 bpm following treatment. Patient remained with call light, tray table and cell phone. Will continue per POC as tolerated, total treatment time 18 minutes. Ross Salazar, MORTGAGE LOAN COMPUTATION CLERK
[2018-06-28] MEDS ORDERED: LEVAQUIN750 M1 PO (11:22)
[2018-06-28] MEDS ORDERED: LASIX40 MG PO (11:24)
--- NOTE | 2018-06-28 13:18 | NUR ---
Discharge instructions reviewed with patient/family. Patient receptive and verbalizes understanding. Follow-up care arranged. Written instructions given to patient/family. IV REMOVED. ALL BELONGINGS SENT HOME WITH PT. KRISTEN TRIANA
--- NOTE | 2018-06-28 14:39 | NUR ---
PHYSICAL THERAPY CO-SIGN I approve of the Phyical Therapy notes written above. ELIANA EDWARDS PT
== END 2018-06-28 13:18 | disposition home or self-care (01) | DRG 871 ==
LOC: ED 04:50 → EDHOLD 07:11 → 5E 07:11
PROVIDERS: Emergency Medicine; Internal Medicine; ADMIT Internal Medicine
DX: A41.9 Sepsis, unspecified organism (principal); J18.9 Pneumonia, unspecified organism; E44.0 Moderate protein-calorie malnutrition; I25.810 Atherosclerosis of coronary artery bypass graft(s) without angina pectoris; J44.0 Chronic obstructive pulmonary disease with (acute) lower respiratory infection; E87.8 Other disorders of electrolyte and fluid balance, not elsewhere classified; K58.1 Irritable bowel syndrome with constipation; E78.2 Mixed hyperlipidemia; K21.9 Gastro-esophageal reflux disease without esophagitis; F41.9 Anxiety disorder, unspecified; E66.3 Overweight; I12.9 Hypertensive chronic kidney disease with stage 1 through stage 4 chronic kidney disease, or unspecified chronic kidney disease; N18.9 Chronic kidney disease, unspecified; K57.90 Diverticulosis of intestine, part unspecified, without perforation or abscess without bleeding; R73.03 Prediabetes; Y95 Nosocomial condition; Z96.653 Presence of artificial knee joint, bilateral; E55.9 Vitamin D deficiency, unspecified; Z88.1 Allergy status to other antibiotic agents; Z88.2 Allergy status to sulfonamides; Z88.8 Allergy status to other drugs, medicaments and biological substances; Z91.048 Other nonmedicinal substance allergy status; Z86.010 Personal history of colon polyps; Z95.1 Presence of aortocoronary bypass graft; Z90.49 Acquired absence of other specified parts of digestive tract; Z90.2 Acquired absence of lung [part of]; I25.2 Old myocardial infarction; Z87.891 Personal history of nicotine dependence; Z83.3 Family history of diabetes mellitus; Z82.49 Family history of ischemic heart disease and other diseases of the circulatory system; Z79.82 Long term (current) use of aspirin; Z79.899 Other long term (current) drug therapy; Z68.27 Body mass index [BMI] 27.0-27.9, adult

== ENCOUNTER 2018-10-07 04:08 | Inpatient (IN) | payer MEDICARE, OTHER ==
[~2018-10-07] VITALS: Ht 175.3 cm; Wt 90.8 kg
[2018-10-07] VITALS (35 sets, daily range): BP systolic 71–176; BP diastolic 41–107
--- NOTE | ~2018-10-07 | PR ---
[place], [place] PROGRESS NOTE NAME: SANJAY JEWELL JR UNIT #: [id number] ROOM: 518 DOCTOR: NANCY LEGGETT MD BIRTHDATE: [birth year] DOS: 10/09/2018 SUBJECTIVE: He has been noted quite comfortable at this time, sitting on the bed this morning, was not noted any symptoms of fever, chills, coughing or any sputum expectoration. Shortness of breath has been improving progressively. OBJECTIVE: VITAL SIGNS: Normal temperature, respiratory rate of 18, heart rate 72, blood pressure 134/80. Pulse oxygen saturation recorded as 94% saturation on room air. HEENT: Examination shows head was atraumatic. Eyes nonicterus. NECK: Supple. CARDIOVASCULAR: S1, S2 is audible. LUNGS: Noted without any wheeze or crackles. ABDOMEN: Soft, nontender. Bowel sounds present. EXTREMITIES: No acute change. LABORATORY DATA: Blood culture from 10/07/2018, one bottle noted gram-negative bacilli, pending identification and sensitivity. CBC this morning, WBC count 21,000, hemoglobin and hematocrit normal, platelet count normal. BMP this morning noted as BUN 34, creatinine 1.34. IMPRESSION: 1. The patient who has been currently noted with resolving acute exacerbation of chronic obstructive pulmonary disease. 2. Acute pneumonia. 3. Gram-negative bacilli, bacteremia, pending identification sensitivities. 4. Leukocytosis, was also seen. PLAN OF MANAGEMENT: Continuation of bronchodilators, oxygen supplementation and antibiotics. Solu-Medrol was discontinued today by the primary care attending. Follow the respiratory status of the patient closely. Start the patient on Pulmicort Respules as well. Monitor recommendations of the Infectious Disease Specialist. [place], [place] PROGRESS NOTE NAME: SANJAY JEWELL JR UNIT #: [id number] ROOM: 518 DOCTOR: NANCY LEGGETT MD BIRTHDATE: [birth year] NANCY GO MD CM:PNTRANS 1342 0033 NANCY CORDON MD 10/10/18 0034 interface
--- NOTE | ~2018-10-07 | CON ---
[place], [place] REPORT OF CONSULTATION NAME: SANJAY JEWELL JR [facility] #: [id number] UNIT #: [id number] ROOM: [facility] DOCTOR: NANCY LEGGETT MD BIRTHDATE: [birth year] DOS: 10/07/2018 PULMONARY CONSULTATION, EVALUATION AND MANAGEMENT REASON FOR CONSULTATION: Consultation was done for assessment of current shortness of breath and respiratory failure. CONSULTATION REQUESTED BY: Hospitalist Service. HISTORY OF PRESENT ILLNESS: The patient was independently seen and examined with [id number] encounter. History was confirmed. Physical examination performed. Labs were reviewed. Note done by the coroner/medical examiner was approved. The assessment and management for today's visit was personally completed. This is a 73-year-old white male patient, known very well known to me from the past during the previous couple of hospitalizations. The patient has been admitted to the hospital under the care of the hospitalist service on the date of 10/07/2018. The patient stated he is developing increasing shortness breath for the past 3 days, which is noted gradual worsening. Shortness breath was occurring with exertion. He was also noted with shortness of breath, which worsened significantly, later on difficulty speaking because of the shortness of breath as well. He denies any symptoms of chest pain. The patient reported symptoms of wheezing. The patient was also noted with increasing edema in lower extremities. Denies symptoms of hemoptysis. Denies symptoms of anginal pain. The patient was noted with respiratory distress with hypoxia as well, requiring significant amount of oxygen. The patient initially was started on oxygen supplementation, later BiPAP was ordered in the setting of 04/14 in the emergency room. REVIEW OF SYSTEMS: CONSTITUTIONAL: Fatigue and tiredness noted. Denies symptoms of fever or chills. EYES: Denies any burning, redness, or tenderness. EARS, NOSE, THROAT SYMPTOMS: Denies sore throat, hoarseness, otalgia, postnasal drainage or epistaxis. CARDIOVASCULAR: Denies anginal pain or pain of the lower extremities. Edema of the lower extremity was stated. GASTROINTESTINAL: Denies dysphagia, nausea, vomiting, diarrhea, abdominal pain, hematemesis, melena, or hematochezia. SKIN: Denies abnormal lesions or rashes. CENTRAL NERVOUS SYSTEM: Denies dizziness, headache, diplopia, or syncopal episodes. MUSCULOSKELETAL: Denies any joint pain, redness, or tenderness. Remaining systems were reviewed, they were noted all negative. PAST MEDICAL HISTORY: Noted as: 1. Coronary artery disease. 2. Chronic kidney disease, stage 3. [place], [place] REPORT OF CONSULTATION NAME: SANJAY JEWELL JR UNIT #: [id number] ROOM: [facility] DOCTOR: DONAVAN CRODON MD,NANCY BIRTHDATE: [birth year] 3. General anxiety disorder. 4. Diverticulosis. 5. Gastroesophageal reflux. 6. Chronic obstructive pulmonary disease. 7. Abdominal aortic aneurysm. 8. Hyperlipidemia. 9. Irritable bowel syndrome. 10. 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 PAST SURGICAL HISTORY: 1. Coronary artery bypass grafting. 2. Bilateral cataract extraction and lens implantation. 3. Inguinal hernia repair. 4. Cholecystectomy. 5. Left chest tube thoracostomy in 04/2018. 6. Left VATS procedure with bullectomy of the left upper lung bulla on 04/21/2018 in [facility], [place]. 7. Bilateral total knee replacement. 8. Cardiac catheterization. SOCIAL HISTORY: The patient is . He lives at home. Denies history of alcohol use or illicit drug use. Tobacco use noted since teenager, one pack of cigarettes per day until 30 years ago. There was no history of alcohol use or illicit drug use. FAMILY HISTORY: The patient's father at 86 from complication of coronary artery disease. Mother at 50 years old with complication of ruptured abdominal aortic aneurysm and myocardial infarction. CURRENT MEDICATIONS: Active administered were noted as Coreg, aspirin, Lovenox 40 mg subcutaneous daily, ipratropium with nebulizer, omeprazole, DuoNeb, azithromycin, IV Rocephin, lorazepam, intravenous Levophed administration. DRUG ALLERGIES: NOTED : 1. BACTRIM. 2. STATINS. 3. DOXYCYCLINE. 4. AMIODARONE. 5. ELIQUIS. PHYSICAL EXAMINATION: GENERAL: A 73-year-old male, who has been currently noted on oxygen supplementation nasal cannula. The patient is awake and alert, but noted mild tachypnea. Height of 5 feet 9 inches, weight 193 pounds, BMI 28. VITAL SIGNS: Which were recorded showed the temperature was recorded this morning as the patient was seen in the intensive care unit as 101.8 degrees Fahrenheit, respiratory rate recorded at 20-24, heart rate of 110-111. Blood pressure was recorded as 75/51; prior to that, noted 119/63. The patient was currently noted on BiPAP with oxygen supplementation. Noted awake and alert. [place], [place] REPORT OF CONSULTATION NAME: SANJAY JEWELL JR UNIT #: [id number] ROOM: [facility] DOCTOR: DONAVAN CORDON MD,NANCY BIRTHDATE: [birth year] Still able to communicate with the BiPAP use. Pulse oxygen saturation was 96% on 15 liters nasal cannula, later on BiPAP noted as 93% with 40% oxygen use. HEENT: Head was atraumatic, eyes nonicterus. NECK: Supple. CARDIOVASCULAR: S1 and S2 audible. LUNGS: The patient was noted with expiratory wheezing and scattered crackles in the lungs bilaterally. ABDOMEN: Soft, nontender. EXTREMITIES: Shows 2+ pitting edema. MUSCULOSKELETAL: Without any acute deformities. CENTRAL NERVOUS SYSTEM: Cranial nerves 2-12 intact. LABORATORY DATA: PT/PTT were noted as normal in the emergency room. CBC from 10/07/2018 in the emergency room this morning, WBC count 16,000, hemoglobin and hematocrit normal, platelet count normal. CMP this morning, BUN of 20, creatinine 1.29, glucose 135. Magnesium mildly low at 1.3. Troponin first set was noted as 0.23. Lactic acid this morning was 2.3. Chest x-ray one-view, which was reviewed was noted coronary artery bypass grafting changes, changes of COPD. Increased pulmonary venous congestion was also noted with patchy infiltration cannot be completely excluded in the perihilar area. IMPRESSION: 1. The patient has been currently admitted to the hospital with severe acute hypoxic respiratory failure, rule out hypercapnia with arterial blood gas assessment. 2. Possibility of acute pneumonia with acute exacerbation of chronic obstructive pulmonary disease and congestive heart failure, all of the three seems to be very plausible cause for the current acute deterioration of respiratory status. 3. Past history of nicotine abuse. 4. Advanced emphysema was also noted previously. 5. Hypertension with acute sepsis would be considered as well. The source of origin of the sepsis would be considered from the lungs. 6. Mild abnormal troponin at this time. The significance of that remains unknown. PLAN OF TREATMENT: The patient is already getting BiPAP at 40% oxygen and that will be continued to maintain good oxygen saturation. Arterial blood gases will be done to make further adjustments in the medication. The patient will be started on IV Solu-Medrol and diuretics as well. The patient is already getting vasopressor and antibiotic for community-acquired infection and that would be continued. Close monitoring of respiratory status will be continued. Confirm the code status from family member of the patient and follow the wish of the family member for further medical management in case of any deterioration of cardiopulmonary status. Usual care. Supportive therapy, plan of management, and other treatment plan. Additional treatment changes will be ordered based on the progression of the illness. DVT prophylaxis will be given. Monitor respiratory status closely. Vasopressor to maintain a mean arterial pressure of 65 or greater with monitoring of other vital organs in the intensive care unit setting. Other supportive therapy, plan of management and other additional [place], [place] REPORT OF CONSULTATION NAME: [facility]ANTA [facility]OSANJAY [facility]imo [facility] [id number] UNIT #: [id number] ROOM: [facility] DOCTOR: DONAVAN CORDON MD,NANCY BIRTHDATE: [birth year] intervention to be done with the clinical progression of his illness. Assessment and management was discussed with the patient's in detail in the room. Thanks for allowing me to participate in the care of this patient. NANCY GO MD CM:CONSTR:REPORT OF CONSULTATION 1823 10/08/18 0633 interface
--- NOTE | ~2018-10-07 | PR ---
[place], [place] PROGRESS NOTE NAME: SANJAY JEWELL JR UNIT #: [id number] ROOM: 518 DOCTOR: NANCY LEGGETT MD BIRTHDATE: [birth year] DOS: 10/10/2018 PULMONARY PROGRESS NOTE The patient was independently seen and examined in [id number] encounter, history was confirmed. Labs were reviewed. The medical technologist hematology's note was approved. Assessment and management of today's visit was personally completed. SUBJECTIVE: The patient was comfortably sitting on the bed this morning, has not reported any symptoms of fever, chills, coughing or any sputum expectoration, other acute symptoms at this time of assessment. OBJECTIVE: VITAL SIGNS: For the patient, which are recorded showed normal temperature, respiratory rate of 18, heart rate 81, blood pressure 118/54. The pulse oxygen saturation recorded as 97% saturation. HEENT: Examination shows head was atraumatic. Eyes nonicterus. NECK: Supple. CARDIOVASCULAR SYSTEM: S1, S2 is audible. LUNGS: The patient was noted without any crackles, rhonchi, or wheezing. ABDOMEN: Soft, nontender. Bowel sounds present. EXTREMITIES: No acute change. LABORATORY DATA: BMP today; BUN 36, creatinine 1.21. CBC this morning as WBC count 16.1, remaining CBC was normal. IMPRESSION: Stable respiratory status with resolving acute congestive heart failure as well as significant improvement noted in acute exacerbation of chronic obstructive pulmonary disease at this time. PLAN OF MANAGEMENT: No changes from pulmonary standpoint. Continue the current plan of care as in progress. Usual care, other supportive plan of treatment and therapies. [place], [place] PROGRESS NOTE NAME: SANJAY JEWELL JR UNIT #: [id number] ROOM: 518 DOCTOR: NANCY LEGGETT MD BIRTHDATE: [birth year] NANCY GO MD CM:PNTRANS [id number] NANCY CORDON MD 10/11/18 0302 interface
--- NOTE | ~2018-10-07 | EKG ---
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 : 1945 Requested By: MIRELA PIKE Order Number: [id number] Reading MD: Hai Almonte MD Measurements Intervals [place] Rate: 109 P: 264 [place]: 123 QRS: -11 QRSD: 91 T: 39 QT: 400 QTc: 539 Interpretive Statements Sinus or ectopic atrial tachycardia Consider left ventricular hypertrophy Prolonged QT interval Baseline wander in lead(s) V3 Compared to ECG 06/25/2018 05:32:34 Prolonged QT interval now present Ectopic atrial tachycardia, multifocal no longer present Ventricular premature complex(es) no longer present ST (T wave) deviation no longer present Electronically Signed On 10-07-2018 15:53:12 PDT by Hai Almonte MD CM:EKGRPT:ELECTROCARDIOGRAM REPORT [id number] 1553 MIRELA PIKE MD EPIPHANY DRAFT REPORT MIRELA PIKE MD
--- NOTE | ~2018-10-07 | PR ---
[place], [place] PROGRESS NOTE NAME: SANJAY JEWELL JR [facility] #: [id number] UNIT #: [id number] ROOM: 518 DOCTOR: DONAVAN CORDON MD,NANCY BIRTHDATE: [birth year] DOS: 10/08/2018 PULMONARY PROGRESS NOTE SUBJECTIVE: The patient was noted comfortable at this time, resting, sitting on the bed. He has been using oxygen supplementation by nasal cannula. He reported significant reduction in respiratory symptoms yesterday. The cough has been noted intermittent without any sputum expectoration. Denies symptoms of fever or chills. Denies symptoms of acute hemoptysis. Denies symptoms of nausea, vomiting, diarrhea, or abdominal pain. Denies symptoms of headache or diplopia. Remaining systems were reviewed and they were noted all negative. PHYSICAL EXAMINATION: VITAL SIGNS: The vital signs of the patient reviewed this morning, while the patient resting, T-max of 100.1 degree Fahrenheit; otherwise, normal temperature, respiratory rate ranges between 18 and 22, heart rate 92-96, blood pressure of 110/70-112/69. Pulse oxygen saturation is recorded on 4 liters nasal cannula is 99% saturation. HEENT: Examination shows head was atraumatic. Eyes nonicterus. NECK: Supple. CARDIOVASCULAR SYSTEM: S1, S2 is audible. LUNGS: Noted with scattered wheezing, no crackles. ABDOMEN: Soft, nontender. Bowel sounds present. EXTREMITIES: No acute change. MUSCULOSKELETAL: Without any acute deformities. CENTRAL NERVOUS SYSTEM: Cranial nerves 2-12 intact. LABORATORY DATA: CBC today: WBC count was 14.6, hemoglobin and hematocrit normal, and platelet count was normal. BMP this morning, BUN is 27, creatinine is 1.38, and glucose is 149. Magnesium was 2.2. Blood culture, one set, so far reported on 10/07/2018, gram-negative bacilli and second set, which is an anaerobic culture was still pending. IMPRESSION: 1. The patient has been currently being treated for the medical management of acute pneumonia with acute exacerbation of chronic obstructive pulmonary disease and respiratory failure. 2. The patient with acute exacerbation of chronic obstructive pulmonary disease as well. 3. Acute sepsis as well with gram-negative bacilli isolation. PLAN OF MANAGEMENT: Continuation of the bronchodilators, oxygen supplementation, and BiPAP in case of hypoxia and respiratory distress. The antibiotic covering gram-negative organism. Continue look for the source of infection as well. Antibiotic spectrum was broadened as Zosyn. The Rocephin and Zithromax were discontinued. Follow all the culture results. Other therapy, plan of management. Additional treatment changes will be made based on progression of the illness. Usual medical management, other therapies. [place], [place] PROGRESS NOTE NAME: FANTA SANTOSANJAY Maximo UNIT #: [id number] ROOM: 518 DOCTOR: NANCY LEGGETT MD BIRTHDATE: [birth year] NANCY GO MD CM:BISHOP [id number] NANCY CORDON MD 10/20/18 0847 interface
--- NOTE | ~2018-10-07 | EKG ---
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 : 1945 Requested By: MIRELA PIKE Order Number: [id number] Reading MD: Hai Almonte MD Measurements Intervals [place] Rate: 94 P: -29 [place]: 169 QRS: 2 QRSD: 92 T: -27 QT: 378 QTc: 473 Interpretive Statements Sinus rhythm Atrial premature complexes in couplets Borderline repol abnormality, diffuse leads Baseline wander in lead(s) V4 Compared to ECG 06/25/2018 05:32:34 Atrial premature complex(es) now present Ectopic atrial tachycardia, multifocal no longer present Ventricular premature complex(es) no longer present ST (T wave) deviation no longer present Electronically Signed On 10-07-2018 15:53:14 PDT by Hai Almonte MD CM:EKGRPT:ELECTROCARDIOGRAM REPORT [id number] 1553 MIRELA PIKE MD EPIPHANY DRAFT REPORT MIRELA PIKE MD
--- NOTE | ~2018-10-07 | EKG ---
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: : 1945 Requested By: MIRELA PIKE Order Number: [id number] Reading MD: Hai Almonte MD Measurements Intervals [place] Rate: 113 P: -90 [place]: 144 QRS: 21 QRSD: 90 T: 49 QT: 357 QTc: 490 Interpretive Statements Ectopic atrial tachycardia, unifocal Ventricular premature complex Consider left ventricular hypertrophy ST depression, consider ischemia, lateral lds Borderline prolonged QT interval Compared to ECG 06/25/2018 05:32:34 Possible ischemia now present Ectopic atrial tachycardia, multifocal no longer present ST (T wave) deviation still present Electronically Signed On 10-07-2018 15:53:10 PDT by Hai Almonte MD CM:EKGRPT:ELECTROCARDIOGRAM REPORT [id number] 1553 MIRELA PIKE MD EPIPHANY DRAFT REPORT MIRELA PIKE MD
--- NOTE | ~2018-10-07 | PR ---
[place], [place] PROGRESS NOTE NAME: SANJAY JEWELL JR UNIT #: [id number] ROOM: 518 DOCTOR: ALENA MENDOZA,ALIX BIRTHDATE: [birth year] DOS: 10/08/2018 REASON FOR VISIT: CHF and atrial fibrillation. HISTORY OF PRESENT ILLNESS: The patient is feeling better, less short of breath. Denies any chest pain or shortness of breath. No palpitation or dizziness. Edema is significantly better. No orthopnea, no PND. No nausea, vomiting or diarrhea. REVIEW OF SYSTEMS: Review of 10 systems negative except as mentioned above. RHYTHM STRIPS: The patient in atrial fibrillation. PHYSICAL EXAMINATION: VITAL SIGNS: Blood pressure 110/70, heart rate 90, respiratory rate 18, weight 87.5 kilos. GENERAL: Alert, comfortable, in no acute distress. NECK: Supple, no distended neck veins, no carotid bruit. CHEST: Symmetrical, nontender. LUNGS: Few scattered rhonchi. Good air entry bilaterally. HEART: Regular rhythm, no S3, no palpable thrills. ABDOMEN: Benign, nontender. Bowel sounds normal. EXTREMITIES: Showed no edema. Distal pulses palpable. SKIN: Warm and dry. No cyanosis, no clubbing. RECTAL: Deferred. GENITOURINARY: Deferred. NEUROLOGIC: Alert and oriented. No focal neurologic deficit. LABORATORY DATA AND MEDICATIONS: Reviewed. IMPRESSION: 1. Hypertension, stable. 2. Acute on chronic diastolic heart failure. 3. Paroxysmal atrial fibrillation. 4. Coronary artery disease, status post Coronary artery bypass in . 5. Valvular heart disease, status post mitral valve replacement in October 2017. RECOMMENDATIONS: 1. The blood pressure and heart rate are stable. 2. Continue his Coreg and Lasix. 3. The patient is not on anticoagulation due to his high risk for bleeding in the past. 4. Long discussion with the patient and his family, daughter who is at bedside and all questions were answered. 5. Tentative discharge in the next 24-48 hours 6. Resume Entresto and blood pressure is stable. 7. The patient is not on statins due to his allergy. [place], [place] PROGRESS NOTE NAME: SANJAY JEWELL JR UNIT #: [id number] ROOM: 518 DOCTOR: ALIX CARVAJAL MD BIRTHDATE: [birth year] ALIX CARVAJAL MD CM:PNTRANS [phone] ALIX CARVAJAL MD 10/20/18 0849 interface
--- NOTE | ~2018-10-07 | CON ---
[place], [place] REPORT OF CONSULTATION NAME: SANJAY JEWELL JR Maximo UNIT #: [id number] ROOM: 518 DOCTOR: COLLINS VILLAFANA DO BIRTHDATE: [birth year] DOS: 10/07/2018 PULMONARY CONSULTATION NOTE CHIEF COMPLAINT: Shortness of breath. Consulted by hospitalist service. HISTORY OF PRESENT ILLNESS: A 73-year-old male who presented to the hospital with shortness of breath over the past 3 days. The patient states that overnight it got worse, so he decided to come to the hospital for evaluation. The patient has a history of CHF, COPD, hypertension and coronary artery disease. The patient required multiple open heart surgeries. The patient states that he was able to breathe better once he started BiPAP in the ED. PAST MEDICAL HISTORY: 1. Anxiety. 2. Coronary artery disease. 3. Colon polyps. 4. COPD. 5. Gastroesophageal reflux disease. 6. AAA repair. 7. Hyperlipidemia. 8. Hypertension. 9. Lung blebs. 10. Overweight. 11. Congestive heart failure. PAST SURGICAL HISTORY: 1. Cataracts. 2. Hernia. 3. Cholecystectomy. 4. Bilateral total knee arthroplasty. 5. Pneumonectomy. 6. Tonsillectomy. 7. Cardiac catheterization. 8. Cholecystectomy. 9. CABG. SOCIAL HISTORY: The patient is a former smoker, quit, but has over a 30-year pack history. The patient denies alcohol or drug use. FAMILY HISTORY: His father had valvular disease, diabetes, coronary artery disease, at the age of 86. Mother had a history of NH and AAA, at the age 50. ALLERGIES: The patient is allergic to STATINS, SULFA DRUGS, TAPE, AMIODARONE, ELIQUIS and DOXYCYCLINE. HOME MEDICATIONS: Aspirin, Coreg, Entresto, Lasix, ipratropium, albuterol, [place], [place] REPORT OF CONSULTATION NAME: SANJAY JEWELL JR Maximo UNIT #: [id number] ROOM: 518 DOCTOR: COLLINS VILLAFANA DO BIRTHDATE: [birth year] Combivent, Ativan, omeprazole, and Spiriva. REVIEW OF SYSTEMS: GENERAL: The patient denies fevers, chills, weight loss or weight gain. HEENT: The patient denies vision changes, hearing loss, ear pain, eye pain. CARDIOVASCULAR: The patient reports lower extremity edema. Denies chest pain, palpitations, diaphoresis. RESPIRATORY: The patient reports shortness of breath, paroxysmal nocturnal dyspnea, dyspnea on exertion. The patient denies cough, hemoptysis, wheezing, stridor or sputum production. ABDOMEN: The patient denies abdominal pain, nausea, vomiting, diarrhea, constipation, melena, hematochezia, hematemesis or loss of appetite. GENITOURINARY: The patient denies dysuria, hematuria, increased frequency or urgency. NEUROLOGIC: The patient denies lightheadedness, dizziness or confusion. SKIN: The patient denies any new rashes, lesions or ulcers. PHYSICAL EXAMINATION: VITAL SIGNS: The patient's temperature is 101.8, pulse 111, respiratory rate 17, blood pressure is 119/63, pulse ox is 94% on FIO2 of 40 on the BiPAP machine. HEENT: Normocephalic, atraumatic. Eyes nonicteric. NECK: Supple, nontender, without masses or lesions. HEART: S1, S2 audible. Bilateral lower extremity edema. CHEST: Diffuse wheezing, faint crackles in bilateral bases, diminished breath sounds bilaterally. The patient is on BiPAP during exam. EXTREMITIES: The patient has 2+ bilateral lower extremity edema, left slightly worse than right. No clubbing, cyanosis or erythema. NEUROLOGIC: Grossly intact. No focal neurologic deficits. Cranial nerves 2-12 grossly intact. SKIN: No visible lesions. LABORATORY DATA: White count is 16.0, hemoglobin 15.9, hematocrit 48.2, platelets 169. Chemistry: Sodium 142, potassium 3.9, chloride 108, carbon dioxide 27, BUN 20, creatinine 1.29. Lactic acid was 2.3, calcium 9.2, mag 1.3, T-bili is 0.8, AST 39, ALT 42, alkaline phosphatase 100. Troponin negative initially, second one is 0.2. Protein 7.4, albumin 3.5. Arterial blood gas was performed showing a pH of 7.493, CO2 of 27.4, pO2 of 109, bicarbonate of 20.6. IMAGING: Chest x-ray shows pulmonary vascular congestion, increased opacity, likely pulmonary edema; however, we cannot exclude pneumonia from this picture. IMPRESSION: 1. Acute congestive heart failure. 2. Acute chronic obstructive pulmonary disease exacerbation. 3. Pulmonary edema. 4. Hypertension. 5. Anxiety. PLAN: The patient will be continued on BiPAP at this time with current [place], [place] REPORT OF CONSULTATION NAME: SANJAY JEWELL JR UNIT #: [id number] ROOM: 518 DOCTOR: COLLINS VILLAFANA DO BIRTHDATE: [birth year] settings. The patient is more short of breath from edema likely than anything else. The patient will be treated for CHF exacerbation first, but given the fevers and wheezing, we will also add medications to cover for COPD exacerbation including ceftriaxone, azithromycin, steroids and breathing treatments. The patient became hypotensive, on nitro drip. Cardiology is not following the blood pressures. Goal is to maintain a MAP greater than 60. ABG shows the patient is hyperventilating, but oxygenating just fine. Any additional changes will be based on progression of illness. Macario Villafana DO NANCY GO MD CM:CONSTR:REPORT OF CONSULTATION 0953 10/08/18 1358 interface
[~2018-10-07 04:08] MED LIST changes: +LASIX40 MG PO; +LEVAQUIN750 M1 PO; +SPIRIVA 5 CAPS18 MCG INH
[2018-10-07] MEDS ORDERED: ENTRESTO 24 MG1 EACH PO (04:22)
[2018-10-07] MEDS ORDERED: COREG6.25 MG PO (04:22)
[2018-10-07 04:24] LABS: HEMATOCRIT 48.2 % (42.0-52.0); HEMOGLOBIN 15.9 g/dl (14.0-18.0); MEAN CELL VOLUME 87.8 fl (80.0-94.0); MEAN PLATELET VOLUME 10.4 fl (9.6-12.3); PLATELET COUNT AUTOMATED 169 10*3/uL (130-400); RED BLOOD COUNT 5.49 10*6/uL (4.50-5.90); RED CELL DISTRI WIDTH 16.5 % (0-14.5)
[2018-10-07 04:36] LABS: ACT PARTIAL THROMBO TIME 25.7 SECONDS (20.0-32.1)
[2018-10-07 04:41] LABS: ALBUMIN 3.5 gm/dl (3.1-4.5); ALKALINE PHOSPHATASE 100 U/L (45-117); BUN 20 mg/dl (7-24); CHLORIDE 108 mmol/L (98-107); CREATININE 1.29 mg/dL (0.70-1.30); POTASSIUM 3.9 mmol/L (3.5-5.1); SGOT/AST 39 IU/L (3-35); SGPT/ALT 42 U/L (12-78); SODIUM 142 mmol/L (136-145); TOTAL PROTEIN 7.4 gm/dL (6.4-8.2); TROPONIN I 0.036 ng/ml (<0.045)
[2018-10-07 04:43] LABS: PLATELET SUFFICIENCY NORMAL (NORMAL); TOTAL CELLS COUNTED 100 #CELLS
[2018-10-07 08:03] LABS: ABG BASE EXCESS -0.6 mmol/L (-2.0-2.0); ABG HCO3 20.6 mmol/l (22-26); ABG O2 SATURATION 98.5 % (95-97); ARTERIAL BLOOD GAS PCO2 27.4 mmHg (35-45); ARTERIAL BLOOD GAS PH 7.493 (7.35-7.45)
[2018-10-07] MEDS ORDERED: LASIX40 MG PO ×2 (16:29→16:30)
[2018-10-08 00:02] VITALS: BP 123/60
[2018-10-08 04:02] VITALS: BP 116/69
[2018-10-08 05:37] LABS: BUN 27 mg/dl (7-24); CHLORIDE 106 mmol/L (98-107); CREATININE 1.38 mg/dL (0.70-1.30); PHOSPHOROUS 3.5 mg/dL (2.5-4.9); SODIUM 140 mmol/L (136-145)
[2018-10-08 06:02] LABS: HEMOGLOBIN 14.1 g/dl (14.0-18.0); MEAN CELL VOLUME 88.7 fl (80.0-94.0); MEAN CORPUSCULAR HGB 28.4 pg (27.0-31.0); PLATELET COUNT AUTOMATED 146 10*3/uL (130-400); RED BLOOD COUNT 4.96 10*6/uL (4.50-5.90); RED CELL DISTRI WIDTH 16.6 % (0-14.5); WHITE BLOOD COUNT 14.6 10*3/uL (4.8-10.8)
[2018-10-08 06:42] LABS: BURR CELLS FEW; PLATELET SUFFICIENCY NORMAL (NORMAL); TOTAL CELLS COUNTED 100 #CELLS
[2018-10-08 08:00] VITALS: BP 110/70
[2018-10-08 12:00] VITALS: BP 124/58
[2018-10-08 15:51] VITALS: BP 118/58
[2018-10-08 20:00] VITALS: BP 118/58
[2018-10-09] VITALS: BP 121/68
[2018-10-09 07:06] LABS: MEAN CELL VOLUME 89.3 fl (80.0-94.0); MEAN CORPUSCULAR HGB 28.7 pg (27.0-31.0); MEAN CORPUSCULAR HGB CONC 32.1 g/dl (33.0-37.0); MEAN PLATELET VOLUME 10.6 fl (9.6-12.3); RED BLOOD COUNT 5.68 10*6/uL (4.50-5.90)
[2018-10-09 07:13] LABS: HEMATOCRIT 50.7 % (42.0-52.0); HEMOGLOBIN 16.3 g/dl (14.0-18.0); PLATELET COUNT AUTOMATED 197 10*3/uL (130-400)
[2018-10-09 07:29] LABS: BUN 34 mg/dl (7-24); CHLORIDE 106 mmol/L (98-107); CREATININE 1.34 mg/dL (0.70-1.30); POTASSIUM 4.3 mmol/L (3.5-5.1); SODIUM 142 mmol/L (136-145)
[2018-10-09 07:36] LABS: PLATELET SUFFICIENCY NORMAL (NORMAL); TOTAL CELLS COUNTED 100 #CELLS; VACUOLATION OF NEUTROPHILS SLIGHT
[2018-10-09 08:00] VITALS: BP 134/80
[2018-10-09 12:00] VITALS: BP 130/80
[2018-10-09 16:00] VITALS: BP 128/70
[2018-10-09 20:00] VITALS: BP 116/54
[2018-10-10] VITALS: BP 118/54
[2018-10-10 06:50] LABS: BASO % 0.2 % (0.0-1.0); EOS # 0.1 10*3/uL (0.0-0.4); EOS % 0.5 % (1.0-4.0); HEMATOCRIT 47.7 % (42.0-52.0); HEMOGLOBIN 15.5 g/dl (14.0-18.0); LYMPH # 1.4 10*3/uL (1.3-4.4); LYMPH % 8.9 % (27.0-41.0); MEAN CELL VOLUME 88.8 fl (80.0-94.0); MEAN CORPUSCULAR HGB 28.9 pg (27.0-31.0); MEAN CORPUSCULAR HGB CONC 32.5 g/dl (33.0-37.0); MEAN PLATELET VOLUME 10.5 fl (9.6-12.3); MONO # 1.3 10*3/uL (0.1-1.0); NEUT # 13.1 10*3/uL (2.3-7.9); NEUT % 81.7 % (47.0-73.0); PLATELET COUNT AUTOMATED 185 10*3/uL (130-400); RED BLOOD COUNT 5.37 10*6/uL (4.50-5.90); RED CELL DISTRI WIDTH 16.9 % (0-14.5); WHITE BLOOD COUNT 16.1 10*3/uL (4.8-10.8)
[2018-10-10 07:24] LABS: BUN 36 mg/dl (7-24); CHLORIDE 109 mmol/L (98-107); POTASSIUM 3.9 mmol/L (3.5-5.1); SODIUM 143 mmol/L (136-145)
[2018-10-10 07:43] LABS: CREATININE 1.21 mg/dL (0.70-1.30); PHOSPHOROUS 2.2 mg/dL (2.5-4.9)
[2018-10-10 12:00] VITALS: BP 128/58
[2018-10-10 16:00] VITALS: BP 143/78
[2018-10-10 20:00] VITALS: BP 186/89
[2018-10-10 20:17] VITALS: BP 140/72
== END 2018-10-10 20:52 | disposition short-term general hospital (02) | DRG 871 ==
LOC: ED 04:08 → EDHOLD 05:32 → ICCU 05:32 → 5E 10-08 13:28
PROVIDERS: Emergency Medicine Emergency Medical Services; Family Medicine; Internal Medicine; Student in an Organized Health Care Education/Training Program; ADMIT Internal Medicine
PROC: 5A09357 Assistance with Respiratory Ventilation, Less than 24 Consecutive Hours, Continuous Positive Airway Pressure (ICD-10-PCS; principal; 2018-10-07)
DX: A41.9 Sepsis, unspecified organism (principal); J96.01 Acute respiratory failure with hypoxia; I50.33 Acute on chronic diastolic (congestive) heart failure; J18.9 Pneumonia, unspecified organism; E44.0 Moderate protein-calorie malnutrition; I13.0 Hypertensive heart and chronic kidney disease with heart failure and stage 1 through stage 4 chronic kidney disease, or unspecified chronic kidney disease; R65.20 Severe sepsis without septic shock; E83.42 Hypomagnesemia; E87.8 Other disorders of electrolyte and fluid balance, not elsewhere classified; K21.9 Gastro-esophageal reflux disease without esophagitis; I25.10 Atherosclerotic heart disease of native coronary artery without angina pectoris; E78.5 Hyperlipidemia, unspecified; N18.3 Chronic kidney disease, stage 3 (moderate); E66.3 Overweight; R73.03 Prediabetes; J43.9 Emphysema, unspecified; Z96.1 Presence of intraocular lens; I07.1 Rheumatic tricuspid insufficiency; K57.90 Diverticulosis of intestine, part unspecified, without perforation or abscess without bleeding; K58.9 Irritable bowel syndrome, unspecified; I48.0 Paroxysmal atrial fibrillation; F41.1 Generalized anxiety disorder; Z96.653 Presence of artificial knee joint, bilateral; A49.8 Other bacterial infections of unspecified site; I95.2 Hypotension due to drugs; T46.3X5A Adverse effect of coronary vasodilators, initial encounter; Y92.238 Other place in hospital as the place of occurrence of the external cause; Z88.1 Allergy status to other antibiotic agents; Z88.2 Allergy status to sulfonamides; Z88.8 Allergy status to other drugs, medicaments and biological substances; Z91.09 Other allergy status, other than to drugs and biological substances; Z86.010 Personal history of colon polyps; Z87.01 Personal history of pneumonia (recurrent); Z90.49 Acquired absence of other specified parts of digestive tract; I25.2 Old myocardial infarction; Z95.1 Presence of aortocoronary bypass graft; Z87.891 Personal history of nicotine dependence; Z82.49 Family history of ischemic heart disease and other diseases of the circulatory system; Z83.3 Family history of diabetes mellitus; Z79.899 Other long term (current) drug therapy; Z79.82 Long term (current) use of aspirin; Z95.2 Presence of prosthetic heart valve; Z98.42 Cataract extraction status, left eye; Z98.41 Cataract extraction status, right eye; Z68.28 Body mass index [BMI] 28.0-28.9, adult

== ENCOUNTER → 2018-10-27 | Day surgery (SDC) | payer MEDICARE, OTHER ==
[~2018-10-27] MED LIST changes: +COREG6.25 MG PO; +ENTRESTO 24 MG1 EACH PO
--- NOTE | 2018-10-27 09:50 | NUR ---
PATIENT ARRIVED TO OPS WALKING W/ NO C/O. CONDITION STABLE. PATIENT HERE TO HAVE MIDLINE REMOVED. PATIENT HAS ORDER. MIDLINE CATHETER REMOVED PER [facility] POLICY/PROCEDURE. TIP INTACT. SITE ASYMPTOMATIC. STERILE DRESSING APPLIED.
== END | disposition home or self-care (01) ==
LOC: SDC 09:11
DX: Z45.2 Encounter for adjustment and management of vascular access device (principal); Z88.1 Allergy status to other antibiotic agents; Z88.2 Allergy status to sulfonamides; Z88.8 Allergy status to other drugs, medicaments and biological substances; Z91.048 Other nonmedicinal substance allergy status

== ENCOUNTER → 2019-02-01 | Outpatient (CLI) | payer MEDICARE, OTHER | END | disposition home or self-care (01) | LOC: ORTHO 00:04 | DX: M25.511 Pain in right shoulder (principal) ==

== ENCOUNTER 2020-02-20 19:31 | Emergency (ER) | payer MEDICARE, OTHER ==
[~2020-02-20] VITALS: Ht 180.3 cm; Wt 91.2 kg
[2020-02-20 19:55] LABS: BASO # 0.2 10*3/uL (0.0-0.1); BASO % 1.3 % (0.0-1.0); EOS # 0.2 10*3/uL (0.0-0.4); EOS % 1.9 % (1.0-4.0); HEMATOCRIT 53.7 % (42.0-52.0); LYMPH # 2.2 10*3/uL (1.3-4.4); LYMPH % 18.7 % (27.0-41.0); MEAN CELL VOLUME 88.5 fl (80.0-94.0); MEAN CORPUSCULAR HGB 28.5 pg (27.0-31.0); MEAN CORPUSCULAR HGB CONC 32.2 g/dl (33.0-37.0); MEAN PLATELET VOLUME 10.1 fl (9.6-12.3); MONO # 1.1 10*3/uL (0.1-1.0); MONO % 9.3 % (3.0-9.0); NEUT % 68.1 % (47.0-73.0); PLATELET COUNT AUTOMATED 249 10*3/uL (130-400); RED BLOOD COUNT 6.07 10*6/uL (4.50-5.90); RED CELL DISTRI WIDTH 14.6 % (0-14.5); WHITE BLOOD COUNT 11.8 10*3/uL (4.8-10.8)
[2020-02-20 20:06] LABS: ACT PARTIAL THROMBO TIME 27.9 SECONDS (20.0-32.1)
[2020-02-20 20:12] LABS: ALKALINE PHOSPHATASE 136 U/L (45-117); BUN 21 mg/dl (7-24); CHLORIDE 109 mmol/L (98-107); CREATININE 1.59 mg/dL (0.70-1.30); POTASSIUM 3.4 mmol/L (3.5-5.1); SGOT/AST 21 IU/L (3-35); SGPT/ALT 26 U/L (12-78); SODIUM 142 mmol/L (136-145); TOTAL PROTEIN 8.2 gm/dL (6.4-8.2)
[2020-02-20 20:13] LABS: TROPONIN I < 0.015 ng/ml (<0.045)
[2020-02-20 22:25] VITALS: BP 171/81
== END 2020-02-20 22:44 | disposition short-term general hospital (02) ==
LOC: ED 19:31
PROVIDERS: Emergency Medicine
DX: R07.89 Other chest pain (principal); I25.10 Atherosclerotic heart disease of native coronary artery without angina pectoris; J45.909 Unspecified asthma, uncomplicated; E78.00 Pure hypercholesterolemia, unspecified; Z88.8 Allergy status to other drugs, medicaments and biological substances; Z88.2 Allergy status to sulfonamides; Z79.82 Long term (current) use of aspirin; Z79.899 Other long term (current) drug therapy

== ENCOUNTER → 2020-03-29 | Outpatient (CLI) | payer MEDICARE, OTHER | END | disposition home or self-care (01) | LOC: COVID19 14:15 | PROVIDERS: ATTEND Family Medicine | DX: Z20.828 Contact with and (suspected) exposure to other viral communicable diseases (principal) ==

== ENCOUNTER 2020-11-18 11:14 | Emergency (ER) | payer MEDICARE, OTHER ==
[~2020-11-18] VITALS: Ht 175.2 cm; Wt 80.7 kg
[2020-11-18 11:35] VITALS: BP 128/74
== END 2020-11-18 13:39 | disposition home or self-care (01) ==
LOC: ED 11:14
DX: S90.32XA Contusion of left foot, initial encounter (principal); I25.2 Old myocardial infarction; Z88.8 Allergy status to other drugs, medicaments and biological substances; Z88.2 Allergy status to sulfonamides; Z91.048 Other nonmedicinal substance allergy status; Z88.1 Allergy status to other antibiotic agents; Z79.899 Other long term (current) drug therapy; Z79.82 Long term (current) use of aspirin; Z90.49 Acquired absence of other specified parts of digestive tract; Z96.653 Presence of artificial knee joint, bilateral; Z90.89 Acquired absence of other organs; Z98.890 Other specified postprocedural states; Z98.61 Coronary angioplasty status; Z87.891 Personal history of nicotine dependence; W20.8XXA Other cause of strike by thrown, projected or falling object, initial encounter; Y93.89 Activity, other specified; Y92.89 Other specified places as the place of occurrence of the external cause; Y99.8 Other external cause status

== ENCOUNTER → 2021-02-03 | Outpatient (CLI) | payer OTHER | END | disposition home or self-care (01) | LOC: CT 14:55 | PROVIDERS: ATTEND Nurse Practitioner Family | DX: K57.30 Diverticulosis of large intestine without perforation or abscess without bleeding (principal); K40.90 Unilateral inguinal hernia, without obstruction or gangrene, not specified as recurrent; I72.2 Aneurysm of renal artery; K58.0 Irritable bowel syndrome with diarrhea; Q89.09 Congenital malformations of spleen; Z90.49 Acquired absence of other specified parts of digestive tract ==

== ENCOUNTER 2021-10-28 16:40 | Emergency (ER) | payer MEDICARE, OTHER ==
[~2021-10-28] VITALS: Ht 175.2 cm; Wt 74.8 kg
[2021-10-28 16:50] VITALS: BP 147/69
[2021-10-28 17:34] LABS: BASO # 0.1 10*3/uL (0.0-0.1); BASO % 0.6 % (0.0-1.0); EOS # 0.1 10*3/uL (0.0-0.4); EOS % 0.8 % (1.0-4.0); HEMATOCRIT 52.3 % (42.0-52.0); LYMPH # 1.4 10*3/uL (1.3-4.4); LYMPH % 10.2 % (27.0-41.0); MEAN CELL VOLUME 88.8 fl (80.0-94.0); MEAN CORPUSCULAR HGB 29.9 pg (27.0-31.0); MEAN CORPUSCULAR HGB CONC 33.7 g/dl (33.0-37.0); MEAN PLATELET VOLUME 10.1 fl (9.6-12.3); MONO # 1.1 10*3/uL (0.1-1.0); MONO % 7.6 % (3.0-9.0); NEUT # 11.3 10*3/uL (2.3-7.9); NEUT % 80.2 % (47.0-73.0); PLATELET COUNT AUTOMATED 220 10*3/uL (130-400); RED BLOOD COUNT 5.89 10*6/uL (4.50-5.90); RED CELL DISTRI WIDTH 13.9 % (0-14.5); WHITE BLOOD COUNT 14.2 10*3/uL (4.8-10.8)
[2021-10-28 17:46] LABS: INTERNATIONAL NORM RATIO 1.1 (2.0-3.5)
[2021-10-28 17:50] LABS: CREATININE 1.55 mg/dL (0.70-1.30); POTASSIUM 3.6 mmol/L (3.5-5.1); TOTAL PROTEIN 7.5 gm/dL (6.4-8.2)
[2021-10-28] MEDS ORDERED: MEDROL DOSEPAK4 MG PO (20:55)
[2021-10-28] MEDS ORDERED: PERCOCET 5-3251 EACH PO (20:55)
== END 2021-10-28 22:12 | disposition home or self-care (01) ==
LOC: ED 16:40
PROVIDERS: Emergency Medicine
DX: M26.642 Arthritis of left temporomandibular joint (principal); Z88.1 Allergy status to other antibiotic agents; Z88.8 Allergy status to other drugs, medicaments and biological substances; Z79.899 Other long term (current) drug therapy; Z79.82 Long term (current) use of aspirin; Z90.49 Acquired absence of other specified parts of digestive tract; Z90.89 Acquired absence of other organs; Z98.890 Other specified postprocedural states; Z87.891 Personal history of nicotine dependence

== ENCOUNTER 2021-11-07 11:34 | Emergency (ER) | payer MEDICARE, OTHER ==
[~2021-11-07 11:34] MED LIST changes: +PERCOCET 5-3251 EACH PO
[2021-11-07 11:52] VITALS: BP 120/79
[2021-11-07 13:14] LABS: BASO # 0.1 10*3/uL (0.0-0.1); BASO % 0.5 % (0.0-1.0); EOS # 0.1 10*3/uL (0.0-0.4); EOS % 0.7 % (1.0-4.0); LYMPH # 0.8 10*3/uL (1.3-4.4); LYMPH % 6.8 % (27.0-41.0); MEAN CORPUSCULAR HGB CONC 34.5 g/dl (33.0-37.0); MEAN PLATELET VOLUME 10.3 fl (9.6-12.3); NEUT % 83.1 % (47.0-73.0); PLATELET COUNT AUTOMATED 186 10*3/uL (130-400); RED BLOOD COUNT 6.09 10*6/uL (4.50-5.90)
[2021-11-07 13:27] LABS: BILIRUBIN Negative (Negative); BLOOD Negative (Negative); CLARITY Clear (Clear); COLOR Dark Yellow (Yellow); GLUCOSE Negative (Negative); KETONE Trace (Negative); LEUKO ESTERASE Negative (Negative); NITRITE Negative (Negative); PH 5.5 (4.5-8.0); SPECIFIC GRAVITY 1.025 (1.001-1.030)
[2021-11-07 13:28] LABS: ALKALINE PHOSPHATASE 99 U/L (45-117); BUN 21 mg/dl (7-24); CHLORIDE 107 mmol/L (98-107); CREATININE 1.33 mg/dL (0.70-1.30); LIPASE 166 U/L (73-393); POTASSIUM 3.4 mmol/L (3.5-5.1); SGOT/AST 16 IU/L (3-35); SGPT/ALT 20 U/L (12-78); SODIUM 140 mmol/L (136-145); TOTAL PROTEIN 7.8 gm/dL (6.4-8.2)
[2021-11-07 13:36] LABS: BACTERIA 2+; EPITHELIAL CELLS 0-2; RBC 0-2 rbc/hpf (0-2)
[2021-11-07] MEDS ORDERED: METRONIDAZOLE500 M1 PO (17:02)
[2021-11-07] MEDS ORDERED: CIPRO500 MG/5 M PO (17:02)
== END 2021-11-07 18:00 | disposition home or self-care (01) ==
LOC: ED 11:34
PROVIDERS: Emergency Medicine
DX: K57.92 Diverticulitis of intestine, part unspecified, without perforation or abscess without bleeding (principal); K21.9 Gastro-esophageal reflux disease without esophagitis; I25.2 Old myocardial infarction; Z88.2 Allergy status to sulfonamides; Z88.1 Allergy status to other antibiotic agents; Z88.8 Allergy status to other drugs, medicaments and biological substances; Z79.899 Other long term (current) drug therapy; Z79.82 Long term (current) use of aspirin; Z90.49 Acquired absence of other specified parts of digestive tract; Z98.890 Other specified postprocedural states; Z87.891 Personal history of nicotine dependence

== ENCOUNTER 2021-12-04 19:01 | Emergency (ER) | payer MEDICARE, OTHER ==
[~2021-12-04] VITALS: Ht 175.2 cm; Wt 74.8 kg
[~2021-12-04 19:01] MED LIST changes: +CIPRO500 MG/5 M PO; +METRONIDAZOLE500 M1 PO
[2021-12-04 20:08] VITALS: BP 167/76
[2021-12-05] MEDS ORDERED: HYDROCODONE-AC1 EAC1 PO (10:24)
== END 2021-12-04 23:30 | disposition left against medical advice (07) ==
LOC: ED 19:01
DX: Z53.21 Procedure and treatment not carried out due to patient leaving prior to being seen by health care provider (principal)

== ENCOUNTER 2021-12-05 08:35 | Emergency (ER) | payer MEDICARE, OTHER ==
[~2021-12-05] VITALS: Wt 74.8 kg
[2021-12-05 08:46] VITALS: BP 190/90
[2021-12-05] MEDS ORDERED: HYDROCODONE-AC1 EAC1 PO (10:24)
== END 2021-12-05 10:43 | disposition home or self-care (01) ==
LOC: ED 08:35
DX: S63.502A Unspecified sprain of left wrist, initial encounter (principal); I48.91 Unspecified atrial fibrillation; J44.9 Chronic obstructive pulmonary disease, unspecified; I25.10 Atherosclerotic heart disease of native coronary artery without angina pectoris; K21.9 Gastro-esophageal reflux disease without esophagitis; E78.5 Hyperlipidemia, unspecified; I10 Essential (primary) hypertension; Z88.8 Allergy status to other drugs, medicaments and biological substances; Z88.2 Allergy status to sulfonamides; Z88.1 Allergy status to other antibiotic agents; Z79.899 Other long term (current) drug therapy; Z79.82 Long term (current) use of aspirin; Z98.890 Other specified postprocedural states; Z90.89 Acquired absence of other organs; Z90.49 Acquired absence of other specified parts of digestive tract; Z95.1 Presence of aortocoronary bypass graft; Z87.891 Personal history of nicotine dependence; W18.39XA Other fall on same level, initial encounter; Y93.89 Activity, other specified; Y92.89 Other specified places as the place of occurrence of the external cause; Y99.8 Other external cause status

== ENCOUNTER 2022-01-22 10:28 | Emergency (ER) | payer MEDICARE, OTHER ==
[~2022-01-22] VITALS: Ht 175.2 cm; Wt 68.9 kg
[~2022-01-22 10:28] MED LIST changes: +HYDROCODONE-AC1 EAC1 PO
[2022-01-22 12:08] LABS: BASO # 0.1 10*3/uL (0.0-0.1); EOS # 0.1 10*3/uL (0.0-0.4); EOS % 1.3 % (1.0-4.0); HEMATOCRIT 50.1 % (42.0-52.0); LYMPH # 1.2 10*3/uL (1.3-4.4); LYMPH % 12.1 % (27.0-41.0); MEAN CELL VOLUME 88.4 fl (80.0-94.0); MEAN CORPUSCULAR HGB 30.9 pg (27.0-31.0); MEAN CORPUSCULAR HGB CONC 34.9 g/dl (33.0-37.0); MEAN PLATELET VOLUME 10.2 fl (9.6-12.3); MONO # 0.7 10*3/uL (0.1-1.0); MONO % 6.8 % (3.0-9.0); NEUT # 7.6 10*3/uL (2.3-7.9); NEUT % 78.2 % (47.0-73.0); PLATELET COUNT AUTOMATED 197 10*3/uL (130-400); RED BLOOD COUNT 5.67 10*6/uL (4.50-5.90); RED CELL DISTRI WIDTH 14.5 % (0-14.5); WHITE BLOOD COUNT 9.8 10*3/uL (4.8-10.8)
[2022-01-22 12:22] LABS: ALKALINE PHOSPHATASE 83 U/L (45-117); BUN 21 mg/dl (7-24); CHLORIDE 110 mmol/L (98-107); CREATININE 1.23 mg/dL (0.70-1.30); POTASSIUM 3.4 mmol/L (3.5-5.1); SGOT/AST 11 IU/L (3-35); SGPT/ALT 13 U/L (12-78); SODIUM 140 mmol/L (136-145); TOTAL PROTEIN 7.4 gm/dL (6.4-8.2)
[2022-01-22 18:00] VITALS: BP 182/95
== END 2022-01-22 19:26 | disposition home or self-care (01) ==
LOC: ED 10:28
PROVIDERS: Nurse Practitioner Family
DX: I65.01 Occlusion and stenosis of right vertebral artery (principal); G43.909 Migraine, unspecified, not intractable, without status migrainosus; J44.9 Chronic obstructive pulmonary disease, unspecified; Z88.2 Allergy status to sulfonamides; Z88.1 Allergy status to other antibiotic agents; Z88.8 Allergy status to other drugs, medicaments and biological substances; Z79.899 Other long term (current) drug therapy; Z79.82 Long term (current) use of aspirin; Z98.890 Other specified postprocedural states; Z90.49 Acquired absence of other specified parts of digestive tract; Z90.89 Acquired absence of other organs; Z87.891 Personal history of nicotine dependence

== ENCOUNTER 2022-02-22 09:34 | Emergency (ER) | payer MEDICARE, OTHER ==
[~2022-02-22] VITALS: Ht 175.2 cm; Wt 74.8 kg
[2022-02-22 10:06] LABS: BASO # 0.1 10*3/uL (0.0-0.1); EOS # 0.1 10*3/uL (0.0-0.4); EOS % 1.2 % (1.0-4.0); HEMATOCRIT 49.3 % (42.0-52.0); LYMPH # 1.6 10*3/uL (1.3-4.4); LYMPH % 14.7 % (27.0-41.0); MEAN CELL VOLUME 87.6 fl (80.0-94.0); MEAN CORPUSCULAR HGB CONC 34.3 g/dl (33.0-37.0); MEAN PLATELET VOLUME 10.4 fl (9.6-12.3); MONO # 0.8 10*3/uL (0.1-1.0); MONO % 7.7 % (3.0-9.0); NEUT # 7.9 10*3/uL (2.3-7.9); NEUT % 74.7 % (47.0-73.0); PLATELET COUNT AUTOMATED 221 10*3/uL (130-400); RED BLOOD COUNT 5.63 10*6/uL (4.50-5.90); RED CELL DISTRI WIDTH 14.8 % (0-14.5); WHITE BLOOD COUNT 10.6 10*3/uL (4.8-10.8)
[2022-02-22 10:21] LABS: ACT PARTIAL THROMBO TIME 30.6 SECONDS (20.0-32.1); INTERNATIONAL NORM RATIO 1.2 (2.0-3.5)
[2022-02-22 10:24] LABS: BUN 16 mg/dl (7-24); CHLORIDE 110 mmol/L (98-107); CREATININE 1.34 mg/dL (0.70-1.30); POTASSIUM 2.8 mmol/L (3.5-5.1); SGOT/AST 19 IU/L (3-35); SGPT/ALT 28 U/L (12-78); SODIUM 144 mmol/L (136-145); TOTAL PROTEIN 7.4 gm/dL (6.4-8.2)
[2022-02-22 10:25] LABS: ALKALINE PHOSPHATASE 87 U/L (45-117)
[2022-02-22 13:22] VITALS: BP 153/90
[2022-02-22] MEDS ORDERED: PREDNISONE20 M1 PO (16:07)
== END 2022-02-22 16:35 | disposition home or self-care (01) ==
LOC: ED 09:34
PROVIDERS: Family Medicine
DX: J44.1 Chronic obstructive pulmonary disease with (acute) exacerbation (principal); Z88.2 Allergy status to sulfonamides; Z88.1 Allergy status to other antibiotic agents; Z88.8 Allergy status to other drugs, medicaments and biological substances; Z79.899 Other long term (current) drug therapy; Z90.49 Acquired absence of other specified parts of digestive tract; Z98.890 Other specified postprocedural states; Z90.89 Acquired absence of other organs; Z87.891 Personal history of nicotine dependence